=== PATIENT | female | born 1945 | race Caucasian/White ===

== ENCOUNTER → 2019-04-05 | Outpatient (REF) | LOC: M LAB LCGH 11:17 | DX: R06.02 Shortness of breath (principal) ==

== ENCOUNTER 2020-09-26 16:37 | Inpatient (IN) | payer MEDICARE ==
[~2020-09-26] VITALS: Ht 114.3 cm; Wt 65.0 kg
[2020-09-26] MEDS ORDERED: FURO40TA2 PO (16:59)
[2020-09-26] MEDS ORDERED: PANT40TA29 PO (16:59)
[2020-09-26] MEDS ORDERED: DULO1CAP6 PO (16:59)
[2020-09-26] MEDS ORDERED: GABA-843 PO (16:59)
[2020-09-26] MEDS ORDERED: MONT5TAB2 PO (16:59)
[2020-09-26] MEDS ORDERED: MELO7.5T35 PO (16:59)
[2020-09-26] MEDS ORDERED: LEVO100T5 PO (16:59)
[2020-09-26] MEDS ORDERED: LIDO2SOL9 SSP (16:59)
[2020-09-26] MEDS ORDERED: DICL1GEL3 TOP (16:59)
[2020-09-26] MEDS ORDERED: MORP30TASA PO (16:59)
[2020-09-26 17:45] LABS: BASO % 0.1 % (0.0-1.0); HEMATOCRIT 27.5 % (36.0-47.0); HEMOGLOBIN 7.7 g/dl (12.0-15.5); LYMPH # 1.5 10^3/uL (1.5-5.0); LYMPH % 14.4 % (24.0-44.0); MEAN CORPUSCULAR HEMOGLOBIN 21.4 pg (27.0-33.0); MEAN CORPUSCULAR VOLUME 76.4 fl (80.0-96.0); MONO # 0.9 10^3/uL (0.0-0.8); MONO % 8.4 % (0.0-5.0); NEUTROPHILS # 7.8 10^3/uL (1.5-8.5); NEUTROPHILS % 76.3 % (36.0-66.0); PLATELET COUNT, AUTOMATED 516 10^3/uL (150-450); WHITE BLOOD COUNT 10.2 10^3/uL (4.0-10.0)
[2020-09-26 17:55] LABS: INR 1.05; PROTHROMBIN TIME 13.9 SECONDS (12.5-14.3)
[2020-09-26 18:02] LABS: ALBUMIN 2.4 GM/DL (3.2-5.2); BILIRUBIN,TOTAL 0.2 MG/DL (0.2-1.0); C REACTIVE PROTEIN QUANTITATIV 12.9 MG/DL (0.00-0.30); CALCIUM LEVEL 8.7 MG/DL (8.8-10.2); CREATININE FOR GFR 1.85 MG/DL (0.55-1.30); GLOMERULAR FILTRATION RATE 28.3 (>39); POTASSIUM SERUM 4.5 MEQ/L (3.5-5.1); TOTAL PROTEIN 7.7 GM/DL (6.4-8.2)
[2020-09-26] MEDS ORDERED: ACET500T15 PO (18:23)
[2020-09-26 18:36] LABS: ERYTHROCYTE SEDIMENTATION RATE 127 mm/hr (0-30)
--- NOTE | 2020-09-26 19:00 | HPEPDOC ---
[facility] Medical History & Physical Date of Admission Sep 26, 2020 Date of Service: Sep 26, 2020 Primary Care Physician: Spencer Castañeda MD Attending Physician: TESHA MCGUIRE MD History and Physical CHIEF COMPLAINT: left hip infection HISTORY OF PRESENT ILLNESS: Danielle Toth is a 75 female who presents today after being seen in the outpatient setting by Dr. Valladares for wounds on her left hip and left knee. Patient states she's had these movements for about 4-5 months and has been seen Dr. Castañeda consistently. She denies being on antibiotics for these in the past. She states she has had intermittent subjective fevers and chills over this time span. She has not taken her temperature home. She has had bilateral hip surgeries in the past but denies ever having surgery for soft tissue infection previously. PAST MEDICAL HISTORY: 1. Congenital abnormalities 2. Hypertension 3. Hypothyroidism 4. Chronic pain 5. Obesity PAST SURGICAL HISTORY: 1. Bilateral hip surgeries SOCIAL HISTORY: Lives in [facility] home next to brother and sister in law Never smoker. No alcohol use. No illicit/IV drug use FAMILY HISTORY: Father and brother had myasthenia gravis. Sister had breast cancer. Grandfather had colon cancer. Reports general family history of HTN and DM. ALLERGIES: Please see below. REVIEW OF SYSTEMS: CONSTITUTIONAL: Endorses subjective fevers. Denies chills, night sweats, fatigue, unexpected change in weight. HEENT: Denies change in vision, change in hearing. CARDIOVASCULAR: Endorses some exertional shortness of breath. Denies chest pain, palpitations, lightheadedness. RESPIRATORY: Denies cough, wheezing. GASTROINTESTINAL: Denies nausea, vomiting, abdominal pain, diarrhea, constipation, blood in stool. GENITOURINARY: Denies dysuria, urinary frequency, urinary urgency. SKIN: Denies rash, lesions. MUSCULOSKELETAL: Reports bilateral shoulder and hip pain. NEUROLOGICAL: Denies headache, dizziness, weakness. PSYCHIATRIC: Denies change in mood. HOME MEDICATIONS: Please see below. PHYSICAL EXAMINATION: VITAL SIGNS: See below GENERAL: Alert, comfortable, in no acute distress HEENT: Normocephalic, atraumatic, PERRLA, EOMI, moist mucous membranes NECK: Supple, trachea midline, no JVD noted CARDIOVASCULAR: Regular rate and rhythm, normal S1 and S2. No murmurs, rubs, or gallops RESPIRATORY: Clear to auscultation bilaterally with equal air entry bilaterally. No wheezing, rhonchi, or rales. ABDOMEN: Soft, nontender, nondistended, bowel sounds present, epigastric hernia noted which is easily reducible EXTREMITIES: Bilateral legs are short compared to her body size. Pulses 2+/4 in bilateral upper and lower extremities. 1+ pitting edema in the right leg and 2+ pitting edema in the left leg. Venous stasis skin changes over the left. Three open lesions with packing present on the anterior knee, lateral knee, and lateral him of the left leg. No surrounding erythema, induration, or drainage. SKIN: Multiple seborrheic keratoses of various size on her back. NEUROLOGIC: Alert and oriented x3 to person, place and time. No focal deficits appreciated. Moves all four extremities spontaneously. PSYCHIATRIC: Mood and affect appropriate LABORATORY DATA: See below. IMAGING: None MICROBIOLOGY: Please see below. ASSESSMENT: 75-year-old female with recurrent left hip infection presents to the hospital as directed by Dr. Valladares for surgical intervention, admitted by hospitalist team for perioperative management. PLAN: 1. Left hip infection. - Elevated WBC and CRP - Plan for surgery with Dr. Valladares in the morning 2. Medical clearance for surgery - EKG pending. CXR pending. - Admits to baseline exertional dyspnea, 3. Acute kidney injury vs new diagnosis CKD - ordered renal ultrasound, urine electrolytes - trend BMP daily - no known history of kidney disease 4. Anemia, chronic vs acute - ordered iron studies DVT Prophylaxis: Teds and SCDs perioperatively DISPOSITION: admitted inpatient to med/surg, expect greater than two midnights stay, pending surgical intervention Attending attestation: Patient seen and examined independently. Agree with resident's note. Vital Signs Vital Signs Date Time Temp Pulse Resp B/P (MAP) Pulse Ox O2 Delivery O2 Flow Rate FiO2 09/26/20 17:55 09/26/20 16:38 97.8 78 18 98 Room Air Laboratory Data Labs 24H Laboratory Tests 2 09/26/20 17:29: Immature Granulocyte % (Auto) 0.8, Neutrophils (%) (Auto) 76.3H, Lymphocytes (%) (Auto) 14.4L, Monocytes (%) (Auto) 8.4H, Eosinophils (%) (Auto) 0.0, Basophils (%) (Auto) 0.1, Neutrophils # (Auto) 7.8, Lymphocytes # (Auto) 1.5, Monocytes # (Auto) 0.9H, Eosinophils # (Auto) 0.0, Basophils # (Auto) 0.0, Nucleated Red Blood Cells % (auto) 0.0, Prothrombin Time 13.9, Prothromb Time International Ratio 1.05, Anion Gap 4L, Glomerular Filtration Rate 28.3L, Calcium Level 8.7L, Total Bilirubin 0.2, Aspartate Amino Transf (AST/SGOT) 13, Alanine Ami notransferase (ALT/SGPT) 9L, Alkaline Phosphatase 129H, C-Reactive Protein, Quantitative 12.90H, Total Protein 7.7, Albumin 2.4L, Albumin/Globulin Ratio 0.5L CBC/BMP Laboratory Tests 09/26/20 17:29 Microbiology Microbiology 09/26/20 Blood Culture, Received Pending 09/26/20 Blood Culture, Received Pending Home Medications Scheduled Acetaminophen (Acetaminophen) 500 Mg Tablet, 500 MG PO BID Diclofenac Sodium (Diclofenac Sodium) 1% 100GM Gel..gram., 2 GRAMS TOP BID APPLIES TO SHOULDERS/LOWER BACK Duloxetine Hcl (Duloxetine HCl) 60 Mg Capsule.dr, 60 MG PO DAILY Furosemide (Furosemide) 40 Mg Tablet, 40 MG PO DAILY Gabapentin (Gabapentin) 300 Mg Capsule, 300 MG PO TID Levothyroxine Sodium (Levothyroxine Sodium) 100 Mcg Tablet, 100 MCG PO DAILY Lidocaine HCl (Lidocaine HCl Viscous) 100 Ml Solution, 15 ML SSP TID Meloxicam (Meloxicam) 7.5 Mg Tablet, 7.5 MG PO BID Montelukast Sodium (Montelukast Sodium) 10 Mg Tablet, 10 MG PO QHS Morphine Sulfate (Morphine Sulfate ER) 30 Mg Tablet.er, 30 MG PO BID Pantoprazole Sodium (Pantoprazole Sodium) 40 Mg Tablet.dr, 40 MG PO DAILY Allergies Coded Allergies: pregabalin (Verified Adverse Reaction, Unknown, "made me feel spaced out", 09/26/20) FRANCISCO GRANADO D.O. Sep 26, 2020 19:00 TESHA MCGUIRE MD Sep 27, 2020 07:12
[2020-09-26 19:26] LABS: PERCENT SATURATION 5.7 % (13.2-45.0)
--- NOTE | 2020-09-26 20:39 | REPVR ---
PROCEDURE INFORMATION: Exam: US Retroperitoneal Limited, Kidneys Exam date and time: 09/26/2020 7:56 PM Age: 75 years old Clinical indication: Abnormal findings; Abnormal lab test; Abnormal kidney function lab tests; Additional info: Elevated creatinine TECHNIQUE: Imaging protocol: Real-time ultrasound of the retroperitoneum with image documentation. Examination was focused on the kidneys. COMPARISON: No relevant prior studies available. FINDINGS: Exam is limited due to patient body habitus and resultant poor resolution. Left kidney is not visualized. Right kidney measures 8.5 x 5.3 x 4 cm with increased echotexture and cortical thinning. No high-grade collecting system dilatation. No perinephric fluid. Bladder is unremarkable IMPRESSION: No obstructive change involving the right kidney, with mild cortical thinning present. Nonvisualized left kidney. Electronically signed by: Vic Blanca On 09/26/2020 20:39:03 PM
[2020-09-26] MEDS ORDERED: MELOXICAM (MOBIC) 7.5 MG TAB PO SCH (21:00)
--- NOTE | 2020-09-26 21:12 | REPVR ---
PROCEDURE INFORMATION: Exam: XR Chest, 1 View Exam date and time: 09/26/2020 5:56 PM Age: 75 years old Clinical indication: Other: Preop TECHNIQUE: Imaging protocol: XR of the chest Views: 1 view. COMPARISON: No relevant prior studies available. FINDINGS: Lungs: Degree of lung inflation is normal. No evidence of pulmonary edema. No focal consolidation or parenchymal lung mass. Pleural space: No pleural effusion or pneumothorax. Heart/Mediastinum: Cardiac silhouette appears normal. No adenopathy or hilar mass. Bones/joints: Chronic arthropathy changes of the glenohumeral joints and degenerative changes are seen in the cervical and thoracic spine. IMPRESSION: No acute or focal cardiopulmonary process. Electronically signed by: Vic Blanca On 09/26/2020 21:12:40 PM
--- NOTE | 2020-09-26 21:12 | REPVR ---
PROCEDURE INFORMATION: Exam: CT Left Lower Extremity Without Contrast, Hip Exam date and time: 09/26/2020 7:47 PM Age: 75 years old Clinical indication: Pain; Hip; Left; Additional info: Danielle TECHNIQUE: Imaging protocol: CT of the Left lower extremity without contrast was performed. Exam focused on the hip. Radiation optimization: All CT scans at this facility use at least one of these dose optimization techniques: automated exposure control; mA and/or kV adjustment per patient size (includes targeted exams where dose is matched to clinical indication); or iterative reconstruction. COMPARISON: No relevant prior studies available. FINDINGS: Severely limited by artifact from orthopedic hardware. The lateral thigh is excluded from the field of view as is the knee joint. Hip arthroplasty hardware with revision hardware is present with very limited evaluation of the osseous structures secondary to the hardware artifact. There is no dislocation between the femoral and acetabular components of the hip arthroplasty although there is lucency at the interface between the acetabulum and the acetabular component, unknown chronicity. Chronic deformities of the sacrum and iliac bone are present and old obturator ring fractures are present. I do not see evidence of an acute fracture and the symphysis and right obturator ring appear intact. No obvious soft tissue hematoma. Distal thigh is not imaged IMPRESSION: Extremely limited study demonstrating no obvious periprosthetic fracture involving the proximal femur and acetabular prostheses. Distal femur and thigh are not imaged. 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
[2020-09-26] MEDS: LIDOCAINE VISCOUS 2% SOLN 15ML UDC SSP SCH (22:53)
[2020-09-26] MEDS: MONTELUKAST 10 MG TAB PO SCH (22:53)
[2020-09-26] MEDS: ACETAMINOPHEN 500 MG TAB PO SCH (22:53)
[2020-09-26] MEDS: GABAPENTIN 300 MG CAP PO SCH (22:53)
[2020-09-26] MEDS: MORPHINE 30 MG SA TAB PO SCH (22:54)
[2020-09-27] VITALS (12 sets, daily range): BP systolic 119–179; BP diastolic 64–93
[2020-09-27] MEDS: LEVOTHYROXINE 100MCG TABLET (0.1MG) PO SCH (05:38)
[2020-09-27 06:57] LABS: HEMOGLOBIN 7.5 g/dl (12.0-15.5); MEAN CORPUSCULAR HGB CONC 28.8 g/dl (32.0-36.5); MEAN CORPUSCULAR VOLUME 76.2 fl (80.0-96.0); PLATELET COUNT, AUTOMATED 471 10^3/uL (150-450); RED BLOOD COUNT 3.41 10^6/uL (4.00-5.40); WHITE BLOOD COUNT 6.5 10^3/uL (4.0-10.0)
[2020-09-27 07:31] LABS: CALCIUM LEVEL 8.9 MG/DL (8.8-10.2); CREATININE FOR GFR 1.75 MG/DL (0.55-1.30); GLOMERULAR FILTRATION RATE 30.2 (>39); MAGNESIUM LEVEL 2.4 MG/DL (1.8-2.4)
[2020-09-27 07:59] LABS: CREATININE,RANDOM URINE 51.4 MG/DL
[2020-09-27] MEDS ORDERED: dexameTHASONE 4 MG/ML 1ML VIAL (J1100 PER 1MG) As Ordered ONE (09:05)
[2020-09-27] MEDS ORDERED: LIDOCAINE 2% 100MG/5ML SDV (FOR ANES.) As Ordered ONE (09:05)
[2020-09-27] MEDS ORDERED: propofoL 200 MG/20 ML VIAL As Ordered ONE (09:05)
[2020-09-27] MEDS ORDERED: MIDAZOLAM INJ 2MG/2ML VIAL (J2250 PER 1MG) As Ordered ONE (09:05)
[2020-09-27] MEDS ORDERED: ONDANSETRON 4MG/2ML VIAL As Ordered ONE (09:05)
[2020-09-27] MEDS ORDERED: fentaNYL 100 MCG/2 ML INJECTION (J3010) As Ordered ONE (09:05)
[2020-09-27] MEDS: DULoxetine 30 MG CAP (CYMBALTA) PO SCH (09:24)
[2020-09-27] MEDS: MORPHINE 30 MG SA TAB PO SCH ×2 (09:25→21:20)
[2020-09-27] MEDS: GABAPENTIN 300 MG CAP PO SCH ×3 (09:25→21:19)
[2020-09-27] MEDS: PANTOPRAZOLE 40MG TAB (PROTONIX) PO SCH (09:26)
[2020-09-27] MEDS: LIDOCAINE VISCOUS 2% SOLN 15ML UDC SSP SCH ×3 (09:26→21:18)
[2020-09-27] MEDS: ACETAMINOPHEN 500 MG TAB PO SCH ×2 (09:26→21:19)
--- NOTE | 2020-09-27 11:12 | CR.PDOC ---
Plastic Surgery Consultation Date of Consultation 09/27/20 History and Physical CONSULT REPORT FOR: Medical team REASON FOR CONSULTATION: Left hip infected wound and left knee chronic wounds HISTORY OF PRESENT ILLNESS: 75 y/o female Left knee chronic medial and lateral open wounds, developed a new open wound left hip 2 days prior to admission. Patient seen by wound care and me yesterday. She had an abscess drained from the left hip. Patient denies CP, SOB, fever, chills. She has local pain, induration left hip. She needs a formal surgical debridement of all the wounds of the left leg, since the depth is not unknown. She was sent to ER from my office to be admitted and prepared for surgery. IV antibiotics. PAST MEDICAL HISTORY: 1. both legs deformities. Arthritis, anemia. PAST SURGICAL HISTORY: INCLUDES: 1. both hips surgery. PREVIOUS ANESTHESIA REACTIONS: denies ALLERGIES: Please see below. FAMILY HISTORY: none contributory. HOME MEDICATIONS: Please see below. REVIEW OF SYSTEMS: GENERAL: Denies chills, reports weight gain,. HEENT: Denies blurred vision and double vision. Denies ear symptoms. Denies hoarseness. NECK: Denies any neck pain]. CARDIOVASCULAR: Denies chest pain and palpitations. MUSCULOSKELETAL: wheelchair bound. SKIN: Denies rash. NEUROLOGIC: Denies headache, stroke and transient ischemic attack. PSYCHIATRIC: Denies anxiety and depression. ENDOCRINE: Denies thyroid disease. HEMATOLOGY/ONCOLOGY: Denies bleeding or clotting disorder. HEART: Denies any chest pains, palpitations, paroxysmal dyspnea, orthopnea. PULMONARY: Denies chronic cough, dyspnea and wheezing. GASTROINTESTINAL: Denies rectal bleeding, family history of colon cancer, constipation, diarrhea, dysphagia, heartburn and jaundice. GENITOURINARY: Denies dysuria, frequency, hematuria and nocturia. ENDOCRINE: Denies polydipsia, polyphagia, polyuria, heat or cold intolerance. INFECTIOUS: Denies any recent upper respiratory tract infection, UTI, need for use of antibiotics. Left hip wound infection NUTRITION: Reports good appetite. PHYSICAL EXAMINATION: VITALS SIGNS: Please see below. GENERAL APPEARANCE:Patient seen, laying in bed, awake, alert, and oriented. Comfortable, in no acute distress. SKIN: Warm and moist. Left hip open wound 1x1 cm , left knee lateral and left medial wounds 1x1cm unmeasurab NECK: Supple, no thyromegaly. No obvious jugular venous distention. LUNGS: Clear to auscultation bilaterally. No wheezing appreciated. HEART: No chest wall abnormalities. Regular rate and rhythm with no murmurs appreciated. ABDOMEN: Abdomen is soft, non-tender, non-distended. EXTREMITIES: Extremities have no deformities. No edema identified. No calf tenderness. LABORATORY DATA: Please see below. IMAGING STUDIES: Visualized hip prosthesis left hip. IMPRESSION: Left hip and knee wounds. PLANS: Admit to medical service. IV antibiotics Wash out all wounds today. Transfuse blood, would like to have Hb of 9 for proper healing. Findings discussed with patient. Vital Signs Vital Signs Date Time Temp Pulse Resp B/P (MAP) Pulse Ox O2 Delivery O2 Flow Rate FiO2 09/27/20 10:15 98.7 83 16 144/80 96 Room Air I&Os I&O- Last 24 Hours up to 6 AM 09/27/20 06:00 Intake Total 0 ml Output Total 600 ml Balance -600 ml Laboratory Data Labs 24H Laboratory Tests 2 09/26/20 17:29: Immature Granulocyte % (Auto) 0.8, Neutrophils (%) (Auto) 76.3H, Lymphocytes (%) (Auto) 14.4L, Monocytes (%) (Auto) 8.4H, Eosinophils (%) (Auto) 0.0, Basophils (%) (Auto) 0.1, Neutrophils # (Auto) 7.8, Lymphocytes # (Auto) 1.5, Monocytes # (Auto) 0.9H, Eosinophils # (Auto) 0.0, Basophils # (Auto) 0.0, Nucleated Red Blood Cells % (auto) 0.0, Erythrocyte Sedimentation Rate 127H, Prothrombin Time 13.9, Prothromb Time International Ratio 1.05, Anion Gap 4L, Glomerular Fi ltration Rate 28.3L, Calcium Level 8.7L, Iron Level 17L, Total Iron Binding Capacity 297, Transferrin % Saturation 5.7L, Ferritin 43, Total Bilirubin 0.2, Aspartate Amino Transf (AST/SGOT) 13, Alanine Aminotransferase (ALT/SGPT) 9L, Alkaline Phosphatase 129H, C-Reactive Protein, Quantitative 12.90H, Total Protein 7.7, Albumin 2.4L, Albumin/Globulin Ratio 0.5L 09/26/20 18:27: Coronavirus (COVID-19)(PCR) NEGATIVE, Influenza Type A (RT-PCR) NEGATIVE, Influenza Type B (RT-PCR) NEGATIVE, Respiratory Syncytial Virus (PCR) NEGATIVE 09/26/20 20:05: 09/27/20 06:32: Nucleated Red Blood Cells % (auto) 0.0, Anion Gap 5L, Glomerular Filtration Rate 30.2L, Calcium Level 8.9, Magnesium Level 2.4 09/27/20 07:20: Urine Random Creatinine 51.4, Urine Random Sodium 48 CBC/BMP Laboratory Tests 09/26/20 17:29 09/27/20 06:32 Microbiology Microbiology 09/26/20 Blood Culture, Received Pending 09/26/20 Blood Culture, Received Pending Home Medications Scheduled Acetaminophen (Acetaminophen) 500 Mg Tablet, 500 MG PO BID, (Reported) Diclofenac Sodium (Diclofenac Sodium) 1% 100GM Gel..gram., 2 GRAMS TOP BID, (Reported) APPLIES TO SHOULDERS/LOWER BACK Duloxetine Hcl (Duloxetine HCl) 60 Mg Capsule.dr, 60 MG PO DAILY, (Reported) Furosemide (Furosemide) 40 Mg Tablet, 40 MG PO DAILY, (Reported) Gabapentin (Gabapentin) 300 Mg Capsule, 300 MG PO TID, (Reported) Levothyroxine Sodium (Levothyroxine Sodium) 100 Mcg Tablet, 100 MCG PO DAILY, (Reported) Lidocaine HCl (Lidocaine HCl Viscous) 100 Ml Solution, 15 ML SSP TID, (Reported) Meloxicam (Meloxicam) 7.5 Mg Tablet, 7.5 MG PO BID, (Reported) Montelukast Sodium (Montelukast Sodium) 10 Mg Tablet, 10 MG PO QHS, (Reported) Morphine Sulfate (Morphine Sulfate ER) 30 Mg Tablet.er, 30 MG PO BID, (Reported) Pantoprazole Sodium (Pantoprazole Sodium) 40 Mg Tablet.dr, 40 MG PO DAILY, (Reported) Allergies Coded Allergies: pregabalin (Verified Adverse Reaction, Unknown, "made me feel spaced out", 09/26/20) NAVYA RIVERA DO Sep 27, 2020 11:12
[2020-09-27] MEDS ORDERED: BACITRACIN PWD 50,000 UNITS VIAL As Ordered ONE (11:23)
[2020-09-27] MEDS ORDERED: CLINDAMYCIN 600 MG/50 ML PREMIX BAG As Ordered ONE (11:50)
[2020-09-27] MEDS ORDERED: ePHEDrine SULFATE 25 MG/5 ML(5MG/ML) SYRINGE As Ordered ONE (11:51)
--- NOTE | 2020-09-27 11:51 | IPNPDOC ---
Text Note Date of Service The patient was seen on 09/27/20. NOTE SUBJECTIVE: Patient was seen and examined at bedside. She is feeling well without any complaints. She understands she will be going to surgery with Dr. Valladares later today. OBJECTIVE: VITAL SIGNS: See below GENERAL: Alert, comfortable, in no acute distress HEENT: Normocephalic, atraumatic, PERRLA, EOMI, moist mucous membranes NECK: Supple, trachea midline, no JVD noted CARDIOVASCULAR: Regular rate and rhythm, normal S1 and S2. No murmurs, rubs, or gallops RESPIRATORY: Clear to auscultation bilaterally with equal air entry bilaterally. No wheezing, rhonchi, or rales. ABDOMEN: Soft, nontender, nondistended, bowel sounds present, epigastric hernia noted which is easily reducible EXTREMITIES: Bilateral legs are short compared to her body size. Pulses 2+/4 in bilateral upper and lower extremities. 1+ pitting edema in the right leg and 2+ pitting edema in the left leg. Venous stasis skin changes over the left. Three open lesions with packing present on the anterior knee, lateral knee, and lateral him of the left leg. No surrounding erythema, induration, or drainage. SKIN: Multiple seborrheic keratoses of various size on her back. NEUROLOGIC: Alert and oriented x3 to person, place and time. No focal deficits appreciated. Moves all four extremities spontaneously. PSYCHIATRIC: Mood and affect appropriate ASSESSMENT/PLAN: 75-year-old female with recurrent left hip infection presents to the hospital as directed by Dr. Valladares for surgical intervention, admitted by hospitalist team for perioperative management. PLAN: 1. Left hip infection. - Elevated WBC and CRP - Follows with Dr. Castañeda for wound care. - Plan for surgery with Dr. Valladares today for washout 2. Medical clearance for surgery - EKG and CXR reviewed - Admits to baseline exertional dyspnea, uses wheelchair at baseline due to nely enital leg abnormality - She is intermediate risk for this low risk procedure, suggest proceeding with surgery 3. Acute kidney injury vs new diagnosis CKD - renal ultrasound shows normal right kidney, did not visualize left kidney - urine electrolytes suggest intrarenal etiology based on FENa. ordered UA and urine protein. - today pt admits to being told in the past she had some kidney dysfunction. unknown baseline Cr - trend BMP daily 4. Anemia, chronic vs acute - consented for 1 unit PRBCs today prior to surgery per Dr. Valladares - iron studies suggest anemia of chronic disease DVT Prophylaxis: Teds and SCDs perioperatively DISPOSITION: pending surgical intervention VS,Fishbone, I+O VS, Fishbone, I+O Laboratory Tests 09/26/20 17:29 09/27/20 06:32 Vital Signs Date Time Temp Pulse Resp B/P (MAP) Pulse Ox O2 Delivery O2 Flow Rate FiO2 09/27/20 10:15 98.7 83 16 144/80 96 Room Air I&O- Last 24 Hours up to 6 AM 09/27/20 05:59 Intake Total 0 ml Output Total 400 ml Balance -400 ml FRANCISCO GRANADO D.O. Sep 27, 2020 11:51
[2020-09-27] MEDS ORDERED: PHENYLephrine HCL 500 MCG/5 ML (100MCG/ML) SYRINGE (J2370) As Ordered ONE (12:06)
[2020-09-27] MEDS ORDERED: ACETAMINOPHEN 1000MG 100ML IV BTL (OFIRMEV) (J0131 PER 10MG) As Ordered ONE (12:14)
--- NOTE | 2020-09-27 13:07 | POST-OPPD ---
Postoperative Procedure Note Date Of Procedure: Sep 27, 2020 PREOPERATIVE DIAGNOSIS: Left hip infected wound, left knee wounds medial and lateral POSTOPERATIVE DIAGNOSIS: same FINDINGS: Left hip wound pre op 1x1x4.3 cm post op 1.2x1x4.3cm, Left lateral knee pre op 0.5 x 0.6 x 6 cm post op 1.5 x 1 x 6 cm, Left medial knee 0.5 x 1 x 5 cm post op 2 x 1 x 5 cm PROCEDURE: Irrigation and debridement left hip, left medial knee, left lateral knee wound. SURGEON: Dr Rivera ANESTHESIA: General SPECIMENS: Left hip, left medial knee, left lateral knee debrided tissue and cultures ESTIMATED BLOOD LOSS: 25cc REPLACED: none DRAINS: none COMPLICATIONS: none POSTOPERATIVE CONDITION: stable Dict:[id number] NAVYA RIVERA DO Sep 27, 2020 13:07
[2020-09-27] MEDS ORDERED: ONDANSETRON 4MG/2ML VIAL IV PRN (13:45)
[2020-09-27] MEDS ORDERED: oxyCODONE 5MG TAB PO PRN (13:45)
[2020-09-27] MEDS ORDERED: HYDROMORPHONE HCL 0.5 MG/ 0.5 ML SYRINGE (J1170 PER 1) IV PRN (13:45)
[2020-09-27] MEDS ORDERED: fentaNYL 100 MCG/2 ML INJECTION (J3010) IV PRN (13:45)
[2020-09-27] MEDS ORDERED: LR 1,000 ML IV SCH (13:45)
[2020-09-27 16:11] LABS: HEMATOCRIT 30.6 % (36.0-47.0); HEMOGLOBIN 8.9 g/dl (12.0-15.5)
[2020-09-27] MEDS: CLINDAMYCIN 600 MG in IV 1 EA IV SCH ×2 (16:59→21:19)
[2020-09-27] MEDS: MONTELUKAST 10 MG TAB PO SCH (21:19)
--- NOTE | 2020-09-27 22:41 | ECGEPIP ---
[facility] Test Date: 2020-09-26 Pat Name: CHRISSY GIPSON Department: Room: D9968-44 Gender: Female Component Prep Operator: riley : 1945 Requested By: TESHA Lara Order Number: [id number] Reading MD: Sonny Wan Measurements Intervals [place] Rate: 81 P: 59 RI: 174 QRS: 33 QRSD: 82 T: 32 QT: 367 QTc: 428 Interpretive Statements SINUS RHYTHM Within normal limits. No prior ECG available for comparison at the time of interpretation. Electronically Signed on 09-27-2020 22:41:21 EST by Sonny Wan
[2020-09-28] VITALS (7 sets, daily range): BP systolic 140–150; BP diastolic 64–79
[2020-09-28] MEDS: CLINDAMYCIN 600 MG in IV 1 EA IV SCH (03:58)
[2020-09-28] MEDS: LEVOTHYROXINE 100MCG TABLET (0.1MG) PO SCH (06:28)
[2020-09-28 07:01] LABS: HEMOGLOBIN 8.6 g/dl (12.0-15.5); MEAN CORPUSCULAR HEMOGLOBIN 23.1 pg (27.0-33.0); MEAN CORPUSCULAR HGB CONC 29.7 g/dl (32.0-36.5); MEAN CORPUSCULAR VOLUME 77.7 fl (80.0-96.0); PLATELET COUNT, AUTOMATED 466 10^3/uL (150-450); RED BLOOD COUNT 3.73 10^6/uL (4.00-5.40); WHITE BLOOD COUNT 5.4 10^3/uL (4.0-10.0)
[2020-09-28 07:30] LABS: CALCIUM LEVEL 8.3 MG/DL (8.8-10.2); CREATININE FOR GFR 1.64 MG/DL (0.55-1.30); GLOMERULAR FILTRATION RATE 32.5 (>39); MAGNESIUM LEVEL 2.3 MG/DL (1.8-2.4); POTASSIUM SERUM 4.4 MEQ/L (3.5-5.1)
[2020-09-28] MEDS ORDERED: FLUBLOK(EGG FREE)(QUAD)INFLUENZA VACC 0.5ML SYRINGE 18YRS & OLDER IM ONE (09:00)
[2020-09-28] MEDS: LIDOCAINE VISCOUS 2% SOLN 15ML UDC SSP SCH (10:03)
[2020-09-28] MEDS: GABAPENTIN 300 MG CAP PO SCH ×2 (10:05→15:08)
[2020-09-28] MEDS: ACETAMINOPHEN 500 MG TAB PO SCH (10:05)
[2020-09-28] MEDS: PANTOPRAZOLE 40MG TAB (PROTONIX) PO SCH (10:05)
[2020-09-28] MEDS: MORPHINE 30 MG SA TAB PO SCH (10:06)
[2020-09-28] MEDS: DULoxetine 30 MG CAP (CYMBALTA) PO SCH (10:06)
[2020-09-28] MEDS ORDERED: CLIN150C14 PO (12:42)
--- NOTE | 2020-09-28 15:28 | DS.PDOC ---
Discharge Summary General Date of Admission Sep 26, 2020 at 18:18 Date of Discharge 09/28/2020 Primary Care Physician: Spencer Castañeda MD Attending Physician: TESHA MCGUIRE MD Discharge Summary PROCEDURES PERFORMED DURING STAY: Irrigation and debridement left hip, left medial knee, left lateral knee wounds. ADMITTING DIAGNOSES: 1. Left hip, left medial knee, left lateral knee wounds 2. Acute kidney injury vs CKD 3. Anemia, acute vs chronic 4. Bilateral congenital leg abnormalities 5. Hypertension 6. Hypothyroidism 7. Chronic pain 8. Obesity DISCHARGE DIAGNOSES: 1. Left hip, left medial knee, left lateral knee wounds s/p I&D with Dr. Valladares 2. Acute kidney injury vs OLIVERIO on CKD, improved 3. Acute on chronic anemia 4. Bilateral congenital leg abnormalities 5. Hypertension 6. Hypothyroidism 7. Chronic pain 8. Obesity COMPLICATIONS/CHIEF COMPLAINT: Skin Issue. HISTORY OF PRESENT ILLNESS: 75 year old female who presents today after being seen in the outpatient setting by Dr. Valladares for wounds on her left hip and left knee. Patient states she's had these wounds for about 4-5 months and has been seen by Dr. Castañeda for that time. She denies being on antibiotics for these in the past. She states she has had intermittent subjective fevers and chills over this time span. She has not taken her temperature home. She has had bilateral hip surgeries in the past but denies ever having surgery for soft tissue infection previously. She was seen by Dr. Valladares for a consultation who recommend she report to the ED for urgent surgical intervention of her wounds. HOSPITAL COURSE: The patient was admitted to the hospital by the hospitalist team and evaluated for surgical risk. An EKG and CXR were complete and reviewed. We also discussed her function status at home which has been limited due to her congenital abnormalities. She was determined to be of intermediate risk for the low risk procedure of incision and drainage of three wounds on her left lower extremity. She was found to be anemic with H/H of 7.7/27.5 and prior to surgery she was transfused with one unit of blood. She was also found to have elevated creatinine at 1.85. She did admit to a history of chronic anemia and some kidney dysfunction, but we did not have any recent lab work to compare. She was taken to the OR by Dr. Valladares on 09/27/2020 for I&D of her three wounds. Post-op eratively her Hg had improved to 8.9/30.6. Her creatinine also trended down to 1.64 during her admission. She was evaluated by PT and OT prior to discharge and found to be at her baseline functioning. She was discharged home on oral antibiotics and asked to follow up with both her PCP and Dr. Castañeda after discharge. DISCHARGE MEDICATIONS: Please see below. ALLERGIES: Please see below. PHYSICAL EXAMINATION ON DISCHARGE: VITAL SIGNS: Please see below. GENERAL: Alert, comfortable, in no acute distress HEENT: Normocephalic, atraumatic, PERRLA, EOMI, moist mucous membranes NECK: Supple, trachea midline, no JVD noted CARDIOVASCULAR: Regular rate and rhythm, normal S1 and S2. No murmurs, rubs, or gallops RESPIRATORY: Clear to auscultation bilaterally with equal air entry bilaterally. No wheezing, rhonchi, or rales. ABDOMEN: Soft, nontender, nondistended, bowel sounds present, epigastric hernia noted which is easily reducible EXTREMITIES: Bilateral legs are short compared to her body size. Pulses 2+/4 in bilateral upper and lower extremities. 1+ pitting edema in the right leg and 2+ pitting edema in the left leg. Venous stasis skin changes over the left. Two wounds on the left knee with wound vac in place over each. one wound on the left hip which is covered in a clean dressing. SKIN: Multiple seborrheic keratoses of various size on her back. NEUROLOGIC: Alert and oriented x3 to person, place and time. No focal deficits appreciated. Moves all four extremities spontaneously. PSYCHIATRIC: Mood and affect appropriate LABORATORY DATA: Please see below. IMAGING: - CXR No acute or focal cardiopulmonary process. - CT Left hip Extremely limited study demonstrating no obvious periprosthetic fracture involving the proximal femur and acetabular prostheses. Distal femur and thigh are not imaged. 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 Nonvisualized left kidney. PROGNOSIS: Fair ACTIVITY: As tolerated. DIET: Regular diet DISCHARGE PLAN/DISPOSITION: Home on oral antibiotics to follow up outpatient with Dr. Castañeda. DISCHARGE INSTRUCTIONS: 1. Follow-up with your PCP in 7-10 days 2. Follow up with Dr. Castañeda within 1 week 3. Please take antibiotics as prescribed, which may be adjusted based on culture results. 4. Please take all other medications as prescribed. We have stopped your home Meloxicam due to your kidney function. 5. If your symptoms return or your condition worsens, please call your PCP or return to the ED for further evaluation. ITEMS TO FOLLOWUP ON ON OUTPATIENT: 1. Anemia and kidney function with PCP 2. Wound culture results and further management with Dr. Castañeda DISCHARGE CONDITION: Stable. TIME SPENT ON DISCHARGE: Greater than 35 minutes. Attending note: Patient seen and examined independently. Agree with resident's note. Vital Signs/I&Os Vital Signs Date Time Temp Pulse Resp B/P (MAP) Pulse Ox O2 Delivery O2 Flow Rate FiO2 09/28/20 10:06 18 09/28/20 05:38 98.6 82 140/64 (89) 97 Room Air 09/27/20 13:40 2 I&O- Last 24 Hours up to 6 AM 09/28/20 06:00 Intake Total 1745 ml Output Total 275 ml Balance 1470 ml Laboratory Data Labs 24H Laboratory Tests 2 09/27/20 13:29: Bedside Glucose (Misc Panel) 81L 09/27/20 13:59: Bedside Glucose (Misc Panel) 95 09/27/20 15:53: Bedside Glucose (Misc Panel) 139H 09/28/20 06:27: Nucleated Red Blood Cells % (auto) 0.0, Anion Gap 8, Glomerular Filtration Rate 32.5L, Calcium Level 8.3L, Magnesium Level 2.3 CBC/BMP Laboratory Tests 09/27/20 15:49 09/28/20 06:27 FSBS Laboratory Tests Test 09/27/20 13:29 09/27/20 13:59 09/27/20 15:53 Range/Units Bedside Glucose (Misc Panel) 81 95 139 83-110 MG/DL Microbiology Microbiology 09/27/20 Gram Stain - Final, Resulted 09/27/20 Wound Culture, Resulted Pending 09/27/20 Gram Stain - Final, Resulted 09/27/20 Wound Culture, Resulted Pending 09/27/20 Gram Stain - Final, Resulted 09/27/20 Wound Culture, Resulted Pending 09/26/20 Blood Culture - Preliminary, Resulted No growth after 24 hours . All specim... 09/26/20 Blood Culture - Preliminary, Resulted No growth after 24 hours . All specim... Discharge Medications Scheduled Acetaminophen (Acetaminophen) 500 Mg Tablet, 500 MG PO BID, (Reported) Clindamycin Hcl (Clindamycin HCl) 150 Mg Capsule, 450 MG PO TID Please take 3 capsules at a time and do so three times a day. Diclofenac Sodium (Diclofenac Sodium) 1% 100GM Gel..gram., 2 GRAMS TOP BID, (Reported) APPLIES TO SHOULDERS/LOWER BACK Duloxetine Hcl (Duloxetine HCl) 60 Mg Capsule.dr, 60 MG PO DAILY, (Reported) Furosemide (Furosemide) 40 Mg Tablet, 40 MG PO DAILY, (Reported) Gabapentin (Gabapentin) 300 Mg Capsule, 300 MG PO TID, (Reported) Levothyroxine Sodium (Levothyroxine Sodium) 100 Mcg Tablet, 100 MCG PO DAILY, (Reported) Lidocaine HCl (Lidocaine HCl Viscous) 100 Ml Solution, 15 ML SSP TID, (Reported) Montelukast Sodium (Montelukast Sodium) 10 Mg Tablet, 10 MG PO QHS, (Reported) Morphine Sulfate (Morphine Sulfate ER) 30 Mg Tablet.er, 30 MG PO BID, (Reported) Pantoprazole Sodium (Pantoprazole Sodium) 40 Mg Tablet.dr, 40 MG PO DAILY, (Reported) Allergies Coded Allergies: pregabalin (Verified Adverse Reaction, Unknown, "made me feel spaced out", 09/26/20) FRANCISCO GRANADO D.O. Sep 28, 2020 12:37 TESHA MCGUIRE MD Sep 29, 2020 18:07
[2020-09-28] MEDS ORDERED: CLINDAMYCIN 150MG CAPSULE PO SCH (16:00)
--- NOTE | 2020-10-02 09:36 | RO ---
OPERATIVE NOTE DATE OF OPERATION: 09/27/2020 PREOPERATIVE DIAGNOSES: 1. Left hip infected wound. 2. Left knee wound medial and lateral. POSTOPERATIVE DIAGNOSES: 1. Left hip infected wound. 2. Left knee wound medial and lateral. FINDINGS: 1. Left hip wound preop measurements 1 x 1 x 4.3 cm, postop measurements 1.2 x 1 x 4.3 cm. 2. Left lateral knee preop measurements 0.5 x 0.6 x 6 cm depth, postop 1.5 x 1 x 6 cm depth. 3. Left medial knee 0.5 x 1 x 5 cm, postop measurements 2 x 1 x 5 cm depth. PROCEDURE: Irrigation and debridement left hip and left medial and left lateral knee wound. ATTENDING SURGEON: Dr. Valladares. ANESTHESIA: General. SPECIMENS: Left hip, left medial knee, and left lateral knee debrided tissues and cultures. BLOOD LOSS: 25 mL. REPLACEMENTS: None. DRAINS: None. COMPLICATION: None. DESCRIPTION OF PROCEDURE: This is a 75-year-old female who has been seen in Wound Care for chronic left lateral and medial knee wounds. She developed a new wound in her left hip which is infection, and it was drained in Wound Care. Patient's body habitus and the depth of the wound is unknown, and we will need to have her surgically to do a formal I&D and also a formal I&D of her chronic wounds on the left knee. So, patient was admitted through the hospital, and during a workup we identified anemia of chronic origin. Hemoglobin was 7.7 so transfusion was initiated before the surgery, and also she was started on antibiotics. The day of surgery she was stable prior to the operation. Informed consent was obtained. She was brought into the operating room and placed in the supine position. Preoperative antibiotics given on schedule, and general anesthesia was induced. She was prepped and draped in the usual sterile fashion. We started our procedure on the left hip. The packing was removed. All the wounds were measured with measurements as above. We started our procedure by debriding the left hip wound. There was no purulence at this point. Hemostasis obtained. The wound edges were freshened up using a 15 blade, and it was power irrigated with bacitracin irrigation solution. The same procedure was carried out on the left lateral knee. The wound was completely excised all the way down to the end of the wound and the tissue sent to pathology. There was no purulence in the knee wound. However, there was a significant amount of previous scarring so the scar was resected until healthy tissue, and hemostasis was obtained using electrocautery. On all the wounds the cultures were sent as well. Then we turned our attention to the medial knee wound which also scar tissue was excised. Also, the edge of the skin was excised, and hemostasis obtained after the excision, and both knee wounds were irrigated with the power line installer repairer with bacitracin irrigation solution. At this point, we used powdered EpiFix. It was diluted with 5 mL of normal saline and injected in subcu on both lateral and medial knee wounds. Also we used the white foam to pack the wound and applied the wound VAC on the knee wounds. The hip wound was packed with Iodoform dressing and covered with sterile dressing. Patient was extubated in the operating room without any difficulty and transferred to recovery in stable condition.
== END 2020-09-28 18:30 | disposition home health service (06) | DRG 571 ==
LOC: M ED 16:37 → M ED INP 18:18 → ENRESERV 21:43 → M MS5PR 09-27 00:36
PROVIDERS: ADMIT Internal Medicine; ATTEND Internal Medicine
PROC: 0JBP0ZZ Excision of Left Lower Leg Subcutaneous Tissue and Fascia, Open Approach (ICD-10-PCS; 2020-09-27)
PROC: 30233N1 Transfusion of Nonautologous Red Blood Cells into Peripheral Vein, Percutaneous Approach (ICD-10-PCS; 2020-09-27)
PROC: 0JBC0ZZ Excision of Pelvic Region Subcutaneous Tissue and Fascia, Open Approach (ICD-10-PCS; principal; 2020-09-27 11:30)
DX: L02.416 Cutaneous abscess of left lower limb (principal); Z68.42 Body mass index [BMI] 45.0-49.9, adult; N17.9 Acute kidney failure, unspecified; I10 Essential (primary) hypertension; E66.9 Obesity, unspecified; D63.8 Anemia in other chronic diseases classified elsewhere; D64.9 Anemia, unspecified; E03.9 Hypothyroidism, unspecified; Z79.899 Other long term (current) drug therapy; Z88.8 Allergy status to other drugs, medicaments and biological substances; M19.90 Unspecified osteoarthritis, unspecified site

== ENCOUNTER → 2020-09-26 | Outpatient (REF) | payer MEDICARE ==
[~2020-09-26] MED LIST: ACET500T15 PO; DICL1GEL3 TOP; DULO1CAP6 PO; FURO40TA2 PO; GABA-843 PO; LEVO100T5 PO; LIDO2SOL9 SSP; MELO7.5T35 PO; MONT5TAB2 PO; MORP30TASA PO; PANT40TA29 PO
== END ==
LOC: M LAB REF 15:39
PROVIDERS: ATTEND Physician Assistant
DX: I87.312 Chronic venous hypertension (idiopathic) with ulcer of left lower extremity (principal); L02.416 Cutaneous abscess of left lower limb

== ENCOUNTER 2021-01-14 14:01 | Inpatient (IN) | payer MEDICARE, OTHER ==
[~2021-01-14] VITALS: Ht 114.3 cm; Wt 64.8 kg
[~2021-01-14 14:01] MED LIST changes: +CLIN150C15 PO; +GABA-282 PO; -GABA-843 PO; +MONT10TA10 PO; -MONT5TAB2 PO
[2021-01-14] MEDS ORDERED: MELO7.5T35 PO (16:09)
--- NOTE | 2021-01-14 16:27 | REP ---
INDICATION: pre-op. COMPARISON: Comparison chest x-ray September 26, 2020.. TECHNIQUE: Sitting upright AP chest radiograph. Obtained portably. FINDINGS: There is linear fibrosis or discoid atelectasis in the perihilar region on the left. This is unchanged. Lungs are otherwise well inflated and clear. Pleural angles are sharp. Heart is not enlarged. And there is some clothing artifact. Advanced erosive arthropathy is seen affecting the shoulders bilaterally. IMPRESSION: No active cardiopulmonary disease. 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 Linear fibrosis in the left perihilar region. <Electronically signed by Manuel Houston > 01/14/21 [id number]
[2021-01-14 17:23] LABS: HEMATOCRIT 29.7 % (36.0-47.0); HEMOGLOBIN 8.6 g/dl (12.0-15.5); PLATELET COUNT, AUTOMATED 413 10^3/uL (150-450); RED BLOOD COUNT 3.58 10^6/uL (4.00-5.40); WHITE BLOOD COUNT 7.8 10^3/uL (4.0-10.0)
[2021-01-14 17:32] LABS: INR 1.02; PROTHROMBIN TIME 13.7 SECONDS (12.5-14.3)
[2021-01-14 17:33] LABS: PARTIAL THROMBOPLASTIN TIME 38.3 SECONDS (24.2-38.5)
[2021-01-14 17:55] LABS: RSV AMPLIFICATION NEGATIVE (NEGATIVE)
[2021-01-14 17:55] LABS: CALCIUM LEVEL 8.8 MG/DL (8.8-10.2); CREATININE FOR GFR 1.03 MG/DL (0.55-1.30); GLOMERULAR FILTRATION RATE 55.6 (>39); POTASSIUM SERUM 5.2 MEQ/L (3.5-5.1)
[2021-01-14] MEDS ORDERED: VANCOMYCIN HCL 1,230 MG in IV FLUID PLACE HOLDER 1 EA IV SCH (18:30)
--- NOTE | 2021-01-14 18:52 | HPEPDOC ---
[facility] Medical History & Physical Date of Admission Jan 14, 2021 Date of Service: Jan 14, 2021 Attending Physician: MARY ALFARO MD History and Physical CHIEF COMPLAINT: left hip infection HISTORY OF PRESENT ILLNESS: 75 year old female who presents today after being seen in the outpatient setting by Dr. Castañeda for wounds on her left hip and left knee. She has been following with Dr. Castañeda for about 8 months now. She did require surgical debridement previously for a wound on her left him in September 2020. She denies any fevers or chills over the past few months. She has noted some drainage from the wound on her medial left knee. She states this is the one that Dr. Castañeda sent her here for treatment of. PAST MEDICAL HISTORY: 1. Congenital abnormalities 2. Hypertension 3. Hypothyroidism 4. Chronic pain 5. Obesity PAST SURGICAL HISTORY: 1. Bilateral hip surgeries 2. Surgical debridement of left hip wound SOCIAL HISTORY: Lives in [facility] home next to brother and sister in law Never smoker. No alcohol use. No illicit/IV drug use FAMILY HISTORY: Father and brother had myasthenia gravis. Sister had breast cancer. Grandfather had colon cancer. Reports general family history of HTN and DM. ALLERGIES: Please see below. REVIEW OF SYSTEMS: CONSTITUTIONAL: Endorses subjective fevers. Denies chills, night sweats, fatigue, unexpected change in weight. HEENT: Denies change in vision, change in hearing. CARDIOVASCULAR: Endorses some exertional shortness of breath. Denies chest pain, palpitations, lightheadedness. RESPIRATORY: Denies cough, wheezing. GASTROINTESTINAL: Denies nausea, vomiting, abdominal pain, diarrhea, constipation, blood in stool. GENITOURINARY: Denies dysuria, urinary frequency, urinary urgency. SKIN: Denies rash, new lesions. MUSCULOSKELETAL: Reports chronic bilateral shoulder and hip pain. NEUROLOGICAL: Denies headache, dizziness, weakness. PSYCHIATRIC: Denies change in mood. HOME MEDICATIONS: Please see below. PHYSICAL EXAMINATION: VITAL SIGNS: See below GENERAL: Alert, comfortable, in no acute distress HEENT: Normocephalic, atraumatic, sclera anicteric, moist mucous membranes CARDIOVASCULAR: Regular rate and rhythm, normal S1 and S2. No murmurs, rubs, or gallops RESPIRATORY: Clear to auscultation bilaterally with equal air entry bilaterally. No wheezing, rhonchi, or rales. ABDOMEN: Soft, nontender, nondistended, bowel sounds present, epigastric hernia noted which is easily reducible EXTREMITIES: Bilateral legs are short compared to her body size. No edema in the right leg. 1+ pitting edema in the left leg. Venous stasis skin changes over the left leg. Three open lesions with packing present on the medial knee, lateral knee, and lateral hip of the left leg. No surrounding erythema or induration. Drainage presented from the medial knee wound. SKIN: Multiple seborrheic keratoses of various size on her back. NEUROLOGIC: Alert and oriented x3 to person, place and time. No focal deficits appreciated. Moves all four extremities spontaneously. PSYCHIATRIC: Mood and affect appropriate LABORATORY DATA: See below. IMAGING: - CXR No active cardiopulmonary disease. 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 Linear fibrosis in the left perihilar region. MICROBIOLOGY: Please see below. ASSESSMENT: 75-year-old female with recurrent left hip infection presents to the hospital as directed by Dr. Castañeda for surgical intervention on left knee wound by Dr. Valladares, admitted by hospitalist team for perioperative management. PLAN: 1. Left medial knee infection. - WBC normal. Check CRP. - CT knee to evaluate for abscess - IV abx with vancomycin and zosyn day #1. MRSA screen pending. - Plan for surgery with Dr. Valladares on 2. Medical clearance for surgery - EKG reviewed. CXR reviewed. - Admits to baseline exertional dyspnea, uses a wheelchair at baseline due to congenital abnormalities and pain - Overall it is difficult to evaluate her functional status - No further testing recommended prior to surgical debridement by Dr. Valladares 3. Chronic anemia - hx anemia of chronic disease on prior admission - H/H stable compared to recent admission - type and screen in case she needs transfusion 4. Hypothyroidism - continue home levothyroxine 5. Chronic pain - continue home cymbalta, meloxicam, morphine sulfate, and gabapentin 6. Leg edema - continue home lasix 7. GERD - continue home protonix DVT Prophylaxis: Teds and SCDs perioperatively DISPOSITION: admitted inpatient to med/surg, pending surgical intervention Vital Signs Vital Signs Date Time Temp Pulse Resp B/P (MAP) Pulse Ox O2 Delivery O2 Flow Rate FiO2 01/14/21 14:01 97.9 90 16 149/68 (95) 93 Room Air Laboratory Data Labs 24H Laboratory Tests 2 01/14/21 17:04: Nucleated Red Blood Cells % (auto) 0.0, Prothrombin Time 13.7, Prothromb Time I nternational Ratio 1.02, Activated Partial Thromboplast Time 38.3, Anion Gap 3L, Glomerular Filtration Rate 55.6, Calcium Level 8.8 01/14/21 17:08: Coronavirus (COVID-19)(PCR) NEGATIVE, Influenza Type A (RT-PCR) NEGATIVE, Influenza Type B (RT-PCR) NEGATIVE, Respiratory Syncytial Virus (PCR) NEGATIVE CBC/BMP Laboratory Tests 01/14/21 17:04 Home Medications Scheduled Diclofenac Sodium (Diclofenac Sodium) 1% 100GM Gel..gram., 2 GRAMS TOP BID APPLIES TO SHOULDERS/LOWER BACK Duloxetine Hcl (Duloxetine HCl) 60 Mg Capsule.dr, 60 MG PO QPM Furosemide (Furosemide) 40 Mg Tablet, 40 MG PO DAILY Gabapentin (Gabapentin) 300 Mg Capsule, 300 MG PO TID Levothyroxine Sodium (Levothyroxine Sodium) 100 Mcg Tablet, 100 MCG PO DAILY Meloxicam (Meloxicam) 7.5 Mg Tablet, 7.5 MG PO BID Morphine Sulfate (Morphine Sulfate ER) 30 Mg Tablet.er, 30 MG PO BID Pantoprazole Sodium (Pantoprazole Sodium) 40 Mg Tablet.dr, 40 MG PO DAILY Scheduled PRN Acetaminophen (Acetaminophen) 500 Mg Tablet, 500 MG PO BID PRN for PAIN Allergies Coded Allergies: pregabalin (Verified Adverse Reaction, Unknown, "made me feel spaced out", 09/26/20) GME ATTESTATION GME ATTESTATION My faculty preceptor for this patient encounter was physically present during the encounter and was fully available. All aspects of the patient interview, examination, medical decision making process, and medical care plan development were reviewed and approved by the faculty preceptor. The faculty preceptor is aware and concurs with the plan as stated in the body of this note and will attest to such by his/her cosignature. ATTENDING NOTE I, Mary Alfaro, have independently examined this patient and performed my own physical exam, as well as reviewed the documentation and edited where necessary. I have discussed in detail with the resident / student the findings and plan of treatment as documented by the resident / student and edited their note. I agree with their findings and treatment plan and have edited their documentation. I will continue to follow the patient during this hospital stay. FRANCISCO GRANADO D.O. Jan 14, 2021 18:52 MARY ALFARO MD Jan 14, 2021 19:13
[2021-01-14] MEDS ORDERED: ISOVUE-370 76% 100ML VIAL As Ordered ONE (18:58)
[2021-01-14] MEDS ORDERED: CLINDAMYCIN 600 MG in IV 1 EA IV SCH (19:00)
[2021-01-14] MEDS ORDERED: PIPERACILLIN/TAZOBACTAM SOD 3.375 GM in D5W MINI-BAG PLUS 50 ML IV ONE (19:00)
--- NOTE | 2021-01-14 20:08 | ECGEPIP ---
[facility] - ED Test Date: 2021-01-14 Pat Name: CHRISSY GIPSON Department: Room: - Gender: Female Broadcast Director Operations: AZUCENA : 1945 Requested By: Haja Mckay Order Number: [id number] Reading MD: Salina Mcmanus Measurements Intervals [place] Rate: 72 P: 42 TN: 168 QRS: 9 QRSD: 64 T: 18 QT: 366 QTc: 400 Interpretive Statements Normal sinus rhythm NSTTW abnormalities decreased rate 09/26/20 Electronically Signed on 01-14-2021 20:07:43 EDT by Salina Mcmanus
--- NOTE | 2021-01-14 20:15 | REPVR ---
PROCEDURE INFORMATION: Exam: CT Left Lower Extremity Without Contrast, Knee Exam date and time: 01/14/2021 7:41 PM Age: 75 years old Clinical indication: Swelling, leg or foot; Additional info: Wound TECHNIQUE: Imaging protocol: CT of the Left lower extremity without contrast was performed. Exam focused on the knee. Radiation optimization: All CT scans at this facility use at least one of these dose optimization techniques: automated exposure control; mA and/or kV adjustment per patient size (includes targeted exams where dose is matched to clinical indication); or iterative reconstruction. COMPARISON: No relevant prior studies available. FINDINGS: Bones/joints: Status post ORIF left femur. Osteoporosis. Soft tissues: Diffuse skin thickening in the thigh and proximal calf with subcutaneous edema. Findings consistent with diffuse inflammation and or infection including cellulitis. No well-defined abscess demonstrated. IMPRESSION: 1. Diffuse skin thickening in the thigh and proximal calf with subcutaneous edema. Findings consistent with diffuse inflammation and or infection including cellulitis. No well-defined abscess demonstrated. 2. Status post ORIF left femur. Electronically signed by: Barber Agustin On 01/14/2021 20:15:46 PM
[2021-01-14] MEDS: MELOXICAM (MOBIC) 7.5 MG TAB PO SCH (21:00)
[2021-01-14 21:45] VITALS: BP 135/78
[2021-01-14 21:54] LABS: CALCIUM LEVEL 8.5 MG/DL (8.8-10.2); CREATININE FOR GFR 1.3 MG/DL (0.55-1.30); GLOMERULAR FILTRATION RATE 42.5 (>39); POTASSIUM SERUM 4.1 MEQ/L (3.5-5.1)
[2021-01-14] MEDS ORDERED: VANCOMYCIN HCL 750 MG, VIAL MATE ADAPTER 1 EACH in NS 250 ML IV ONE (22:00)
[2021-01-14] MEDS ORDERED: VANCOMYCIN HCL 500 MG in D5W MINI-BAG PLUS 100 ML IV ONE (22:00)
[2021-01-14] MEDS: GABAPENTIN 300 MG CAP PO SCH (23:13)
[2021-01-14] MEDS: DULoxetine 30 MG CAP (CYMBALTA) PO SCH (23:13)
[2021-01-14] MEDS: MORPHINE 30 MG SA TAB PO SCH (23:14)
[2021-01-14] MEDS: VANCOMYCIN HCL 1,000 MG, VIAL MATE ADAPTER 1 EACH in NS 250 ML IV SCH (23:15)
[2021-01-15 00:32] LABS: HEMATOCRIT 24.6 % (36.0-47.0); HEMOGLOBIN 7.4 g/dl (12.0-15.5)
[2021-01-15] MEDS: PIPERACILLIN/TAZOBACTAM SOD 3.375 GM in D5W MINI-BAG PLUS 50 ML IV SCH ×4 (01:59→20:32)
[2021-01-15 06:00] VITALS: BP 147/77
[2021-01-15] MEDS: LEVOTHYROXINE 100MCG TABLET (0.1MG) PO SCH (06:13)
[2021-01-15] MEDS: FUROSEMIDE 40 MG TAB PO SCH (08:01)
[2021-01-15] MEDS: PANTOPRAZOLE 40MG TAB (PROTONIX) PO SCH (08:01)
[2021-01-15] MEDS: GABAPENTIN 300 MG CAP PO SCH ×3 (08:01→20:33)
[2021-01-15] MEDS: MORPHINE 30 MG SA TAB PO SCH ×2 (08:01→20:33)
[2021-01-15] MEDS: MELOXICAM (MOBIC) 7.5 MG TAB PO SCH ×2 (08:01→20:34)
[2021-01-15 08:07] LABS: BASO % 0.2 % (0.0-1.0); HEMATOCRIT 26.3 % (36.0-47.0); HEMOGLOBIN 7.7 g/dl (12.0-15.5); LYMPH # 1.3 10^3/uL (1.5-5.0); LYMPH % 22.3 % (24.0-44.0); MEAN CORPUSCULAR HEMOGLOBIN 24.4 pg (27.0-33.0); MEAN CORPUSCULAR HGB CONC 29.3 g/dl (32.0-36.5); MEAN CORPUSCULAR VOLUME 83.5 fl (80.0-96.0); MONO # 0.6 10^3/uL (0.0-0.8); MONO % 10.7 % (2.0-8.0); NEUTROPHILS % 66.5 % (36.0-66.0); PLATELET COUNT, AUTOMATED 316 10^3/uL (150-450); RED BLOOD COUNT 3.15 10^6/uL (4.00-5.40)
[2021-01-15 08:33] LABS: C REACTIVE PROTEIN QUANTITATIV 4.88 MG/DL (0.00-0.30); CREATININE FOR GFR 1.23 MG/DL (0.55-1.30); GLOMERULAR FILTRATION RATE 45.3 (>39); MAGNESIUM LEVEL 2.3 MG/DL (1.8-2.4); POTASSIUM SERUM 4.3 MEQ/L (3.5-5.1)
--- NOTE | 2021-01-15 11:41 | IPNPDOC ---
Text Note Date of Service The patient was seen on 01/15/21. NOTE SUBJECTIVE: Patient was seen and examined at bedside. She is feeling well without any complaints. She understands she will be going to surgery with Dr. Valladares later this week. We discussed the possible need for blood transfusion prior to surgery and patient is agreeable. OBJECTIVE: VITAL SIGNS: See below GENERAL: Alert, comfortable, in no acute distress HEENT: Normocephalic, atraumatic, sclera anicteric, moist mucous membranes CARDIOVASCULAR: Regular rate and rhythm, normal S1 and S2. No murmurs, rubs, or gallops RESPIRATORY: Clear to auscultation bilaterally with equal air entry bilaterally. No wheezing, rhonchi, or rales. ABDOMEN: Soft, nontender, nondistended, bowel sounds present, epigastric hernia noted which is easily reducible EXTREMITIES: Bilateral legs are short compared to her body size. No edema in the right leg. 1+ pitting edema in the left leg. Venous stasis skin changes over the left leg. Three open lesions with packing present on the medial knee, lateral knee, and lateral hip of the left leg. No surrounding erythema or induration. Drainage presented from the medial knee wound. SKIN: Multiple seborrheic keratoses of various size on her back. NEUROLOGIC: Alert and oriented x3 to person, place and time. No focal deficits appreciated. Moves all four extremities spontaneously. PSYCHIATRIC: Mood and affect appropriate ASSESSMENT/PLAN: 75-year-old female with recurrent left hip infection presents to the hospital for surgical debridement of left knee wound, admitted by hospitalist team for perioperative management. # Left medial knee infection. - WBC normal. CRP elevated - CT knee shows diffuse thickening with cellulitis, no abscess - IV abx with vancomycin and zosyn day #2. - Plan for surgery with Dr. Valladares on # Chronic anemia - hx anemia of chronic disease on prior admission - H/H stable compared to recent admission - type and screen in case she needs transfusion # Hypothyroidism - continue home levothyroxine # Chronic pain - continue home cymbalta, meloxicam, morphine sulfate, and gabapentin # Leg edema - continue home lasix # GERD - continue home protonix DVT Prophylaxis: Teds and SCDs perioperatively DISPOSITION: admitted inpatient to med/surg, pending surgical intervention Attending Attestation: Patient independently seen and examined. I have discussed in detail with the resident / student the findings and plan of treatment as documented by the resident / student. I agree with their findings and treatment plan and have brandon opal their documentation. I will continue to follow the patient during this hospital stay. VS,Fishbone, I+O VS, Fishbone, I+O Laboratory Tests 01/14/21 17:04 01/14/21 21:17 01/15/21 00:19 01/15/21 07:46 Vital Signs Date Time Temp Pulse Resp B/P (MAP) Pulse Ox O2 Delivery O2 Flow Rate FiO2 01/15/21 08:01 16 01/15/21 06:00 98.0 82 147/77 (100) 95 Room Air I&O- Last 24 Hours up to 6 AM 01/15/21 06:00 Intake Total 240 ml Output Total 250 ml Balance -10 ml FRANCISCO GRANADO D.O. Jan 15, 2021 11:41 TESHA MCGUIRE MD Jan 16, 2021 09:19
[2021-01-15 14:00] VITALS: BP 93/68
--- NOTE | 2021-01-15 18:08 | CR.PDOC ---
Plastic Surgery Consultation Date of Consultation 01/15/21 History and Physical CONSULT REPORT FOR: Medical team REASON FOR CONSULTATION: Left leg open wounds x 3 HISTORY OF PRESENT ILLNESS: 75 y/o female well known to our service with 3 open wound 2 on each side of the knee and one left upper hip. Patient has hip prostesis with circlage wires and a pin in the left femur. She has been followed in the wound care for her wounds. She had previous debridement done with us for the knee and hip wounds in September 2020. She is feeling ok today. PAST MEDICAL HISTORY: Congenital abnormalities Hypertension Hypothyroidism Chronic pain Obesity PAST SURGICAL HISTORY: INCLUDES: Wound debridement. Bilateral hip surgeries. PREVIOUS ANESTHESIA REACTIONS: denies ALLERGIES: Please see below. FAMILY HISTORY: non contributory HOME MEDICATIONS: Please see below. REVIEW OF SYSTEMS: GENERAL: Denies chills, reports weight gain,. HEENT: Denies blurred vision and double vision. Denies ear symptoms. Denies hoarseness. NECK: Denies any neck pain]. CARDIOVASCULAR: Denies chest pain and palpitations. MUSCULOSKELETAL: Denies arthralgias, back pain and thrombophlebitis. SKIN: Denies rash. Chronic open wounds NEUROLOGIC: Denies headache, stroke and transient ischemic attack. PSYCHIATRIC: Denies anxiety and depression. ENDOCRINE: Denies thyroid disease. HEMATOLOGY/ONCOLOGY: Denies bleeding or clotting disorder. HEART: Denies any chest pains, palpitations, paroxysmal dyspnea, orthopnea. PULMONARY: Denies chronic cough, dyspnea and wheezing. GASTROINTESTINAL: Denies rectal bleeding, family history of colon cancer, constipation, diarrhea, dysphagia, heartburn and jaundice. GENITOURINARY: Denies dysuria, frequency, hematuria and nocturia. ENDOCRINE: Denies polydipsia, polyphagia, polyuria, heat or cold intolerance. INFECTIOUS: Denies any recent upper respiratory tract infection, UTI, need for use of antibiotics. NUTRITION: Reports good appetite. PHYSICAL EXAMINATION: VITALS SIGNS: Please see below. GENERAL APPEARANCE:Patient seen, laying in bed, awake, alert, and oriented. Comfortable, in no acute distress. SKIN: Warm and moist. Open wounds 1x2 cm left medial knee, 1x2cm lateral left knee, 1x1cm Left hip. All wounds with unknown depths NECK: Supple, no thyromegaly. No obvious jugular venous distention. LUNGS: Clear to auscultation bilaterally. No wheezing appreciated. HEART: No chest wall abnormalities. Regular rate and rhythm with no murmurs appreciated. ABDOMEN: Abdomen is soft, non-tender, non-distended. EXTREMITIES: No edema identified. No calf tenderness. Both LE with congenital deformities. LABORATORY DATA: Please see below. IMAGING STUDIES: CT scan of the knee and hip. IMPRESSION: chronic wounds left medial and lateral knee, left hip PLANS: Plan for surgical debridement. Transfuse PRBC today, keep Hb above 8.5 [address] the debridement. CT findings discussed with patient. Prosthesis in place, close to the open wound track.a NPO after midnight. Finding discussed with patient and sister in law Lyons, who is present at the bedside. Vital Signs Vital Signs Date Time Temp Pulse Resp B/P (MAP) Pulse Ox O2 Delivery O2 Flow Rate FiO2 01/15/21 14:00 98.3 97 16 93/68 (76) 96 Room Air I&Os I&O- Last 24 Hours up to 6 AM 01/15/21 06:00 Intake Total 240 ml Output Total 250 ml Balance -10 ml Laboratory Data Labs 24H Laboratory Tests 2 01/14/21 20:45: Methicillin-Resist S.aureus DNA PCR NOT DETECTED 01/14/21 21:17: Anion Gap 8, Glomerular Filtration Rate 42.5, Calcium Level 8.5L 01/15/21 07:46: Anion Gap 6L, Glomerular Filtration Rate 45.3, Calcium Level 9.0, Immature Granulocyte % (Auto) 0.3, Neutrophils (%) (Auto) 66.5H, Lymphocytes (%) (Auto) 22.3L, Monocytes (%) (Auto) 10.7H, Eosinophils (%) (Auto) 0.0, Basophils (%) (Auto) 0.2, Neutrophils # (Auto) 4.0, Lymphocytes # (Auto) 1.3L, Monocytes # (Auto) 0.6, Eosinophils # (Auto) 0.0, Basophils # (Auto) 0.0, Nucleated Red Blood Cells % (auto) 0.0, Magnesium Level 2.3, C-Reactive Protein, Quantitative 4.88H CBC/BMP Laboratory Tests 01/14/21 21:17 01/15/21 00:19 01/15/21 07:46 Home Medications Scheduled Diclofenac Sodium (Diclofenac Sodium) 1% 100GM Gel..gram., 2 GRAMS TOP BID, (Reported) APPLIES TO SHOULDERS/LOWER BACK Duloxetine Hcl (Duloxetine HCl) 60 Mg Capsule.dr, 60 MG PO QPM, (Reported) Furosemide (Furosemide) 40 Mg Tablet, 40 MG PO DAILY, (Reported) Gabapentin (Gabapentin) 300 Mg Capsule, 300 MG PO TID, (Reported) Levothyroxine Sodium (Levothyroxine Sodium) 100 Mcg Tablet, 100 MCG PO DAILY, (Reported) Meloxicam (Meloxicam) 7.5 Mg Tablet, 7.5 MG PO BID, (Reported) Morphine Sulfate (Morphine Sulfate ER) 30 Mg Tablet.er, 30 MG PO BID, (Reported) Pantoprazole Sodium (Pantoprazole Sodium) 40 Mg Tablet.dr, 40 MG PO DAILY, ( Reported) Scheduled PRN Acetaminophen (Acetaminophen) 500 Mg Tablet, 500 MG PO BID PRN for PAIN, (Reported) Allergies Coded Allergies: pregabalin (Verified Adverse Reaction, Unknown, "made me feel spaced out", 09/26/20) NAVYA RIVERA DO Jan 15, 2021 18:08
[2021-01-15] MEDS: DULoxetine 30 MG CAP (CYMBALTA) PO SCH (20:33)
[2021-01-15] MEDS: VANCOMYCIN HCL 1,000 MG, VIAL MATE ADAPTER 1 EACH in NS 250 ML IV SCH (21:44)
[2021-01-15] MEDS: ACETAMINOPHEN 500 MG TAB PO PRN (21:47)
[2021-01-15 22:00] VITALS: BP 157/75
[2021-01-16] MEDS: PIPERACILLIN/TAZOBACTAM SOD 3.375 GM in D5W MINI-BAG PLUS 50 ML IV SCH ×4 (02:29→20:09)
[2021-01-16] MEDS: LEVOTHYROXINE 100MCG TABLET (0.1MG) PO SCH (05:41)
[2021-01-16 05:49] VITALS: BP 158/77
[2021-01-16 06:04] VITALS: BP 143/73
[2021-01-16 06:49] VITALS: BP 167/77
[2021-01-16 07:30] VITALS: BP 153/76
[2021-01-16 08:12] LABS: HEMATOCRIT 30.4 % (36.0-47.0); HEMOGLOBIN 9.3 g/dl (12.0-15.5); LYMPH # 1.4 10^3/uL (1.5-5.0); LYMPH % 20.9 % (24.0-44.0); MEAN CORPUSCULAR HEMOGLOBIN 25.5 pg (27.0-33.0); MEAN CORPUSCULAR HGB CONC 30.6 g/dl (32.0-36.5); MEAN CORPUSCULAR VOLUME 83.3 fl (80.0-96.0); MONO # 0.7 10^3/uL (0.0-0.8); MONO % 9.8 % (2.0-8.0); NEUTROPHILS # 4.6 10^3/uL (1.5-8.5); PLATELET COUNT, AUTOMATED 313 10^3/uL (150-450); RED BLOOD COUNT 3.65 10^6/uL (4.00-5.40); WHITE BLOOD COUNT 6.6 10^3/uL (4.0-10.0)
[2021-01-16 08:32] LABS: CALCIUM LEVEL 8.6 MG/DL (8.8-10.2); CREATININE FOR GFR 1.49 MG/DL (0.55-1.30); GLOMERULAR FILTRATION RATE 36.3 (>39); MAGNESIUM LEVEL 2.3 MG/DL (1.8-2.4); POTASSIUM SERUM 4.3 MEQ/L (3.5-5.1)
[2021-01-16] MEDS: MELOXICAM (MOBIC) 7.5 MG TAB PO SCH ×2 (09:06→20:10)
[2021-01-16] MEDS: GABAPENTIN 300 MG CAP PO SCH ×3 (09:06→20:09)
[2021-01-16] MEDS: MORPHINE 30 MG SA TAB PO SCH ×2 (09:07→20:10)
[2021-01-16] MEDS: PANTOPRAZOLE 40MG TAB (PROTONIX) PO SCH (09:07)
[2021-01-16] MEDS: FUROSEMIDE 40 MG TAB PO SCH (09:07)
--- NOTE | 2021-01-16 10:12 | IPNPDOC ---
Text Note Date of Service The patient was seen on 01/16/21. NOTE SUBJECTIVE: Patient was seen and examined at bedside. She states she is feeling well, no new concerns. She understands the plan for surgery later this afternoon. She denies any current pain in her left knee. OBJECTIVE: VITAL SIGNS: See below GENERAL: Alert, comfortable, in no acute distress HEENT: Normocephalic, atraumatic, sclera anicteric, moist mucous membranes CARDIOVASCULAR: Regular rate and rhythm, normal S1 and S2. No murmurs, rubs, or gallops RESPIRATORY: Clear to auscultation bilaterally with equal air entry bilaterally. No wheezing, rhonchi, or rales. ABDOMEN: Soft, nontender, nondistended, bowel sounds present, epigastric hernia noted which is easily reducible EXTREMITIES: Bilateral legs are short compared to her body size. No edema in the right leg. 1+ pitting edema in the left leg. Venous stasis skin changes over the left leg. Three open lesions with packing present on the medial knee, lateral knee, and lateral hip of the left leg. No surrounding erythema or induration. Drainage presented from the medial knee wound. SKIN: Multiple seborrheic keratoses of various size on her back. NEUROLOGIC: Alert and oriented x3 to person, place and time. No focal deficits appreciated. Moves all four extremities spontaneously. PSYCHIATRIC: Mood and affect appropriate ASSESSMENT/PLAN: 75-year-old female with recurrent left hip infection presents to the hospital for surgical debridement of left knee wound, admitted by hospitalist team for perioperative management. # Left medial knee infection. - WBC normal. CRP elevated - CT knee shows diffuse thickening with cellulitis, no abscess - IV abx with vancomycin and zosyn day #3. - Plan for surgery with Dr. Valladares today # Chronic anemia - hx anemia of chronic disease on prior admission - H/H stable compared to recent admission - 2 units tranfusing this morning preoperatively. goal Hg > 8.5 # Hypothyroidism - continue home levothyroxine # Chronic pain - continue home cymbalta, meloxicam, morphine sulfate, and gabapentin # Leg edema - continue home lasix # GERD - continue home protonix DVT Prophylaxis: Teds and SCDs perioperatively DISPOSITION: admitted inpatient to med/surg, pending surgical intervention Attending Attestation: Patient independently seen and examined. I have discussed in detail with the resident / student the findings and plan of treatment as documented by the resident / student. I agree with their findings and treatment plan and have edited their documentation. I will continue to follow the patient during this hospital stay. VSKajal, I+O VSKajal, I+O Laboratory Tests 01/16/21 07:56 Vital Signs Date Time Temp Pulse Resp B/P (MAP) Pulse Ox O2 Delivery O2 Flow Rate FiO2 01/16/21 09:07 18 01/16/21 06:49 97.1 81 167/77 95 Room Air I&O- Last 24 Hours up to 6 AM 01/16/21 06:00 Intake Total 1620 ml Output Total 400 ml Balance 1220 ml FRANCISCO GRANADO D.O. Jan 16, 2021 10:12 TESHA MCGUIRE MD Jan 18, 2021 06:58
[2021-01-16 14:00] VITALS: BP 126/74
[2021-01-16] MEDS: DULoxetine 30 MG CAP (CYMBALTA) PO SCH (20:10)
[2021-01-16] MEDS ORDERED: VANCOMYCIN INTERMITTENT/PULSE DOSING BY CLINICAL PHARMACIST PER DOSING PROTOCOL XX SCH (20:35)
[2021-01-16 22:00] VITALS: BP 124/73
[2021-01-17] VITALS (8 sets, daily range): BP systolic 107–137; BP diastolic 65–82
[2021-01-17] MEDS: PIPERACILLIN/TAZOBACTAM SOD 3.375 GM in D5W MINI-BAG PLUS 50 ML IV SCH ×4 (02:16→20:20)
[2021-01-17] MEDS: LEVOTHYROXINE 100MCG TABLET (0.1MG) PO SCH (06:33)
[2021-01-17] MEDS: ACETAMINOPHEN 500 MG TAB PO PRN (06:34)
[2021-01-17 06:38] LABS: HEMATOCRIT 31.5 % (36.0-47.0); HEMOGLOBIN 9.3 g/dl (12.0-15.5); LYMPH # 1.2 10^3/uL (1.5-5.0); LYMPH % 19.3 % (24.0-44.0); MEAN CORPUSCULAR HEMOGLOBIN 24.7 pg (27.0-33.0); MEAN CORPUSCULAR HGB CONC 29.5 g/dl (32.0-36.5); MEAN CORPUSCULAR VOLUME 83.8 fl (80.0-96.0); MONO # 0.5 10^3/uL (0.0-0.8); MONO % 8.4 % (2.0-8.0); NEUTROPHILS # 4.3 10^3/uL (1.5-8.5); NEUTROPHILS % 71.6 % (36.0-66.0); PLATELET COUNT, AUTOMATED 318 10^3/uL (150-450); RED BLOOD COUNT 3.76 10^6/uL (4.00-5.40); WHITE BLOOD COUNT 6.1 10^3/uL (4.0-10.0)
[2021-01-17 07:01] LABS: CALCIUM LEVEL 8.1 MG/DL (8.8-10.2); CREATININE FOR GFR 1.47 MG/DL (0.55-1.30); GLOMERULAR FILTRATION RATE 36.9 (>39); MAGNESIUM LEVEL 2.1 MG/DL (1.8-2.4); POTASSIUM SERUM 3.6 MEQ/L (3.5-5.1); VANCOMYCIN RANDOM 19.7 UG/ML
[2021-01-17] MEDS: MORPHINE 30 MG SA TAB PO SCH ×2 (09:00→20:23)
[2021-01-17] MEDS: MELOXICAM (MOBIC) 7.5 MG TAB PO SCH ×2 (09:00→20:20)
[2021-01-17] MEDS: GABAPENTIN 300 MG CAP PO SCH ×3 (09:00→20:20)
--- NOTE | 2021-01-17 09:53 | IPNPDOC ---
Subjective General Date Seen: Jan 17, 2021 Subject Chief Complaint/History The patient is a 75-year-old female admitted with a reason for visit of Chronic Ulcer Of Leg. Patient s/p transfusion. Ready for surgery for irrigation and debridement of left knee and hip wounds. No new events. Current Medications Current Medications Current Medications Medications (Trade) Dose Ordered Sig/Joanne Route PRN Reason Start Time Stop Time Status Last Admin Dose Admin Acetaminophen (Tylenol Tab) 500 mg BID PRN PO PAIN 01/14/21 18:30 01/15/21 21:47 Clindamycin Phosphate 600 mg/ IV Miscellaneous Supplies 50 ml @ 100 mls/hr Q6H IV 01/14/21 19:00 01/14/21 18:41 DC Duloxetine HCl (Cymbalta) 60 mg QPM PO 01/14/21 21:00 01/16/21 20:10 Furosemide (Lasix) 40 mg DAILY PO 01/15/21 09:00 01/16/21 09:07 Gabapentin (Neurontin) 300 mg TID PO 01/14/21 21:00 01/16/21 20:09 Home Med (Med Rec Complete!) ASDIRECTED XX 01/14/21 16:10 01/14/21 16:13 DC Levothyroxine Sodium (Synthroid) 100 mcg DAILY@0600 PO 01/15/21 06:00 01/17/21 06:33 Meloxicam (Mobic) 7.5 mg BID PO 01/14/21 21:00 01/16/21 20:10 Morphine Sulfate (Ms Contin) 30 mg BID PO 01/14/21 21:00 01/16/21 20:10 Non-Formulary Medication ( See Comment Field Below ) VANCO INTERMIT. DOSING ASDIRECTED XX 01/16/21 20:35 Pantoprazole Sodium (Protonix) 40 mg DAILY PO 01/15/21 09:00 01/16/21 09:07 Piperacillin Sod/ Tazobactam Sod 3.375 gm/Dextrose 50 ml @ 50 mls/hr Q6H IV 01/15/21 02:00 01/17/21 08:24 Vancomycin HCl 1000 mg/IV Miscellaneous Supplies 1 each/ Sodium Chloride 270 ml @ 270 mls/hr Q24H IV 01/14/21 21:00 01/16/21 20:30 DC 3/30/21 21:44 Vancomycin HCl 1230 mg/IV Miscellaneous Supplies 24.6 ml @ 24.6 mls/hr Q12H IV 01/14/21 18:30 01/14/21 19:21 DC Allergies Coded Allergies: pregabalin (Verified Adverse Reaction, Unknown, "made me feel spaced out", 09/26/20) Objective Physical Examination Examination GENERAL APPEARANCE:Patient seen, laying in bed, awake, alert, and oriented. Comfortable, in no acute distress. SKIN: Warm and moist. Left knee medial and lateral wound, left lateral hip wound. Clear drainage. LUNGS: Clear to auscultation bilaterally. No wheezing appreciated. HEART: No chest wall abnormalities. Regular rate and rhythm with no murmurs appreciated. ABDOMEN: Abdomen is soft, non-tender, non-distended. EXTREMITIES: No edema identified. No calf tenderness. Vital Signs Vital Signs Date Time Temp Pulse Resp B/P (MAP) Pulse Ox O2 Delivery O2 Flow Rate FiO2 01/17/21 06:00 97.7 87 18 132/73 (92) 95 Room Air I&Os I&O- Last 24 Hours up to 6 AM 01/17/21 05:59 Intake Total 1310 ml Output Total 200 ml Balance 1110 ml Laboratory Data Labs 24H Laboratory Tests 2 01/16/21 19:51: Vancomycin Level Trough 30.7*H 01/17/21 06:10: Immature Granulocyte % (Auto) 0.7, Neutrophils (%) (Auto) 71.6H, Lymphocytes (%) (Auto) 19.3L, Monocytes (%) (Auto) 8.4H, Eosinophils (%) (Auto) 0.0, Basophils (%) (Auto) 0.0, Neutrophils # (Auto) 4.3, Lymphocytes # (Auto) 1.2L, Monocytes # (Auto) 0.5, Eosinophils # (Auto) 0.0, Basophils # (Auto) 0.0, Nucleated Red Blood Cells % (auto) 0.0, Anion Gap 6L, Glomerular Filtration Rate 36.9L, Calcium Level 8.1L, Magnesium Level 2.1, Random Vancomycin Level 19.7 CBC/BMP Laboratory Tests 01/17/21 06:10 Impression Left knee and hip chronic wounds. OR today for irrigation and debridement of Left medial and lateral knee and lateral hip wounds. Risks, benefits and alternatives discussed with patient. She is ready to proceed. Plan / VTE VTE Prophylaxis Ordered?: Yes NAVYA RIVERA DO Jan 17, 2021 09:53
--- NOTE | 2021-01-17 10:08 | IPNPDOC ---
Text Note Date of Service The patient was seen on 01/17/21. NOTE SUBJECTIVE: Patient was seen and examined at bedside. She states she is frustrated with still being in the hospital. She denies any pain in her knee currently. OBJECTIVE: VITAL SIGNS: See below GENERAL: Alert, comfortable, in no acute distress HEENT: Normocephalic, atraumatic, sclera anicteric, moist mucous membranes CARDIOVASCULAR: Regular rate and rhythm, normal S1 and S2. No murmurs, rubs, or gallops RESPIRATORY: Clear to auscultation bilaterally with equal air entry bilaterally. No wheezing, rhonchi, or rales. ABDOMEN: Soft, nontender, nondistended, bowel sounds present, epigastric hernia noted which is easily reducible EXTREMITIES: Bilateral legs are short compared to her body size. No edema in the right leg. 1+ pitting edema in the left leg. Venous stasis skin changes over the left leg. Three open lesions with packing present on the medial knee, lateral knee, and lateral hip of the left leg. No surrounding erythema or induration. Drainage presented from the medial knee wound. SKIN: Multiple seborrheic keratoses of various size on her back. NEUROLOGIC: Alert and oriented x3 to person, place and time. No focal deficits appreciated. Moves all four extremities spontaneously. PSYCHIATRIC: Mood and affect appropriate ASSESSMENT/PLAN: 75-year-old female with recurrent left hip infection presents to the hospital for surgical debridement of left knee wound, admitted by hospitalist team for p erioperative management. # Left medial knee infection. - WBC normal. CRP elevated - CT knee shows diffuse thickening with cellulitis, no abscess - IV abx with vancomycin and zosyn day #4 - Plan for surgery with Dr. Valladares today, was delayed from yesterday # Chronic anemia - hx anemia of chronic disease on prior admission - H/H stable compared to recent admission - s/p 1 units PRBC. goal Hg > 8.5 preoperatively # Hypothyroidism - continue home levothyroxine # Chronic pain - continue home cymbalta, meloxicam, morphine sulfate, and gabapentin # Leg edema - continue home lasix # GERD - continue home protonix DVT Prophylaxis: Teds and SCDs perioperatively DISPOSITION: pending surgical intervention expect d/c home Attending Attestation: Patient independently seen and examined. I have discussed in detail with the resident / student the findings and plan of treatment as documented by the resident / student. I agree with their findings and treatment plan and have edited their documentation. I will continue to follow the patient during this hospital stay. Kajal CAMPBELL, I+O VSKajal, I+O Laboratory Tests 01/17/21 06:10 Vital Signs Date Time Temp Pulse Resp B/P (MAP) Pulse Ox O2 Delivery O2 Flow Rate FiO2 01/17/21 06:00 97.7 87 18 132/73 (92) 95 Room Air I&O- Last 24 Hours up to 6 AM 01/17/21 06:00 Intake Total 1310 ml Output Total 200 ml Balance 1110 ml FRANCISCO GRANADO D.O. Jan 17, 2021 10:08 TESHA MCGUIRE MD Jan 18, 2021 07:19
[2021-01-17] MEDS ORDERED: MIDAZOLAM INJ 2MG/2ML VIAL (J2250 PER 1MG) As Ordered ONE (10:09)
[2021-01-17] MEDS ORDERED: dexameTHASONE 4 MG/ML 1ML VIAL (J1100 PER 1MG) As Ordered ONE (10:09)
[2021-01-17] MEDS ORDERED: propofoL 200 MG/20 ML VIAL As Ordered ONE (10:09)
[2021-01-17] MEDS ORDERED: LIDOCAINE 2% 100MG/5ML SDV (FOR ANES.) As Ordered ONE (10:09)
[2021-01-17] MEDS ORDERED: ONDANSETRON 4MG/2ML VIAL As Ordered ONE (10:09)
[2021-01-17] MEDS ORDERED: fentaNYL 100 MCG/2 ML INJECTION (J3010) As Ordered ONE (10:10)
[2021-01-17] MEDS ORDERED: BACITRACIN PWD 50,000 UNITS VIAL As Ordered ONE (10:38)
[2021-01-17] MEDS ORDERED: ePHEDrine SULFATE 25 MG/5 ML(5MG/ML) SYRINGE As Ordered ONE (10:56)
[2021-01-17] MEDS ORDERED: PHENYLephrine 500MCG 5ML (100MCG/ML) SYRINGE As Ordered ONE (11:00)
[2021-01-17] MEDS ORDERED: ACETAMINOPHEN 1000MG 100ML IV BTL (OFIRMEV) (J0131 PER 10MG) As Ordered ONE (11:24)
--- NOTE | 2021-01-17 11:37 | REP ---
INDICATION: LEFT LEG WOUND WITH METAL. COMPARISON: CT knee 01/14/2021, CT hip 09/26/2020 TECHNIQUE: Three images C-arm fluoroscopy left hip and the knee provided. FINDINGS: Initial image shows a total hip arthroplasty with the acetabular cup and component with screw into the igiugig acetabulum the femoral head appearing to articulate normally with the long stem femoral prosthesis seen in part along with side plate and cerclage wires around the subtrochanteric to proximal femoral shaft region. The other 2 images are of the knee with the long stem process of the femoral component of the knee arthroplasty extending onto the distal femur along with the compression sideplate, screws and cerclage wire all of them as seen on the CT communication arts lecturer film 09/26/2020. I do not see any definite hardware failure. Single probe on the image of the hip and the last image of the knee also present on these views. IMPRESSION: C-arm fluoroscopic views of the left hip and knee as described. Fluoroscopy time: 12 seconds. <Electronically signed by Wilmer Young > 01/17/21 1139
--- NOTE | 2021-01-17 11:55 | ROOPDOC ---
[facility] Report Of Operation Report of Operation DATE OF PROCEDURE: 01/17/21 PREOPERATIVE DIAGNOSIS: Chronic wound left medial, left lateral knee and left hip POSTOPERATIVE DIAGNOSIS: same FINDINGS: Left medial wound 1x0.5x9cm, left lateral knee 0.5x0.5x2cm, Left hip 0.5x0.5x7cm PROCEDURE: Irrigation and debridement of Left hip, Left medial and lateral knee chronic wounds SURGEON: Dr Rivera ANESTHESIA: General SPECIMENS: Cultures, debrided tissue Left hip, Left medial and lateral knee chronic wounds ESTIMATED BLOOD LOSS: 50 cc REPLACED: none DRAINS: none Wound vac on Left medial and Left hip wounds COMPLICATIONS: none POSTOPERATIVE CONDITION: stable 160 mg EpiFix powder Procedure: this is a 75-year-old female with chronic wounds on her left hip left medial knee and left lateral knee. Patient had been previously debrided by us in September 2020 and followed by wound care for all those wounds, but hit a plateau in healing. Patient is scheduled for irrigation and debridement of wounds today. Informed consent was obtained. Risk, benefits, and alternatives were discussed with patient in details. Patient has left hip hardware which was evaluated on CT scan preoperatively. We plan to use C arm to evaluate the track of her current wounds today. Patient brought into the operating room, placed in supine position, perioperative antibiotics given. compression stockings placed on the right lower calf. General anesthesia is induced. She is prepped and draped in the usual sterile fashion. We started our procedure with culturing all the wounds. Then we used measure probe which was inserted in each wound and x-ray was taken. Left hip and left medial knee wounds were tracking to the hardware. Left lateral knee wound does not reach the bone. Excisional debridement and irrigation was done to all 3 wounds using 10 blade, electrocautery, and curettes. Wound measured after debridement completed. Left hip wound 1 x 1.5 x 7 cm, left lateral knee wound 1.5 x 1.5 x 2 cm, left medial knee wound 3 x 2 x 9 cm. Wounds have been irrigated with bacitracin irrigation solution total 3 mL. Powdered epi fix 160 mg was diluted with 6 mL of normal saline and injected subcutaneously in all 3 wounds. Dressings: Lateral knee wound with iodoform packing and pressure dressing. Left hip wound and left medial knee wound with wound VAC. Wound VAC at 125 mm of pressure. Patient tolerated procedure well, she was extubated in the operating room without difficulties. She was transferred to recovery room in stable condition. NAVYA RIVERA DO Jan 17, 2021 11:55
[2021-01-17] MEDS ORDERED: ONDANSETRON 4MG/2ML VIAL IV PRN (12:10)
[2021-01-17] MEDS ORDERED: oxyCODONE 5MG TAB PO PRN (12:10)
[2021-01-17] MEDS ORDERED: HYDROMORPHONE HCL 0.5 MG/ 0.5 ML SYRINGE (J1170 PER 1) IV PRN (12:10)
[2021-01-17] MEDS ORDERED: LR 1,000 ML IV SCH (12:10)
[2021-01-17] MEDS ORDERED: fentaNYL 100 MCG/2 ML INJECTION (J3010) IV PRN (12:10)
[2021-01-17] MEDS: PANTOPRAZOLE 40MG TAB (PROTONIX) PO SCH (16:49)
[2021-01-17] MEDS: FUROSEMIDE 40 MG TAB PO SCH (16:49)
[2021-01-17 17:11] LABS: PERCENT SATURATION 10.8 % (13.2-45.0)
[2021-01-17] MEDS: DULoxetine 30 MG CAP (CYMBALTA) PO SCH (20:20)
[2021-01-18] VITALS (9 sets, daily range): BP systolic 105–122; BP diastolic 58–69
[2021-01-18] MEDS: PIPERACILLIN/TAZOBACTAM SOD 3.375 GM in D5W MINI-BAG PLUS 50 ML IV SCH ×4 (01:09→20:55)
[2021-01-18] MEDS: LEVOTHYROXINE 100MCG TABLET (0.1MG) PO SCH (06:22)
[2021-01-18 07:03] LABS: BASO % 0.2 % (0.0-1.0); HEMATOCRIT 24.9 % (36.0-47.0); HEMOGLOBIN 7.4 g/dl (12.0-15.5); LYMPH # 0.9 10^3/uL (1.5-5.0); LYMPH % 14.5 % (24.0-44.0); MEAN CORPUSCULAR HEMOGLOBIN 24.9 pg (27.0-33.0); MEAN CORPUSCULAR HGB CONC 29.7 g/dl (32.0-36.5); MEAN CORPUSCULAR VOLUME 83.8 fl (80.0-96.0); MONO # 0.5 10^3/uL (0.0-0.8); MONO % 7.6 % (2.0-8.0); NEUTROPHILS # 4.9 10^3/uL (1.5-8.5); NEUTROPHILS % 77.4 % (36.0-66.0); PLATELET COUNT, AUTOMATED 319 10^3/uL (150-450); RED BLOOD COUNT 2.97 10^6/uL (4.00-5.40); WHITE BLOOD COUNT 6.4 10^3/uL (4.0-10.0)
[2021-01-18 07:37] LABS: CALCIUM LEVEL 8.3 MG/DL (8.8-10.2); CREATININE FOR GFR 1.4 MG/DL (0.55-1.30); MAGNESIUM LEVEL 2.2 MG/DL (1.8-2.4); POTASSIUM SERUM 3.6 MEQ/L (3.5-5.1); VANCOMYCIN RANDOM 14.7 UG/ML
[2021-01-18] MEDS: PANTOPRAZOLE 40MG TAB (PROTONIX) PO SCH (08:31)
[2021-01-18] MEDS: GABAPENTIN 300 MG CAP PO SCH ×3 (08:31→20:56)
[2021-01-18] MEDS: MELOXICAM (MOBIC) 7.5 MG TAB PO SCH ×2 (08:31→20:57)
[2021-01-18] MEDS: FUROSEMIDE 40 MG TAB PO SCH (08:31)
[2021-01-18] MEDS: MORPHINE 30 MG SA TAB PO SCH ×2 (08:38→20:57)
--- NOTE | 2021-01-18 09:02 | IPNPDOC ---
Subjective General Date Seen: Jan 18, 2021 Subject Chief Complaint/History The patient is a 75-year-old female admitted with a reason for visit of Chronic Ulcer Of Leg. Patient is status post irrigation and debridement left medial, left lateral knee wounds as well as left hip wound postop day 1. Patient is feeling well today. She has no pain. She is eating breakfast in bed. Wound VAC is placed on left medial and left hip wounds and is working properly. Left lateral knee wound with packing. No active bleeding. Current Medications Current Medications Current Medications Medications (Trade) Dose Ordered Sig/Joanne Route PRN Reason Start Time Stop Time Status Last Admin Dose Admin Acetaminophen (Tylenol Tab) 500 mg BID PRN PO PAIN 01/14/21 18:30 01/15/21 21:47 Clindamycin Phosphate 600 mg/ IV Miscellaneous Supplies 50 ml @ 100 mls/hr Q6H IV 01/14/21 19:00 01/14/21 18:41 DC Duloxetine HCl (Cymbalta) 60 mg QPM PO 01/14/21 21:00 01/17/21 20:20 Fentanyl Citrate (Sublimaze) 25 mcg Q5MP PRN IV PAIN LEVEL 5-10 01/17/21 12:10 01/17/21 13:10 DC Furosemide (Lasix) 40 mg DAILY PO 01/15/21 09:00 01/18/21 08:31 Gabapentin (Neurontin) 300 mg TID PO 01/14/21 21:00 01/18/21 08:31 Home Med (Med Rec Complete!) ASDIRECTED XX 01/14/21 16:10 01/14/21 16:13 DC Hydromorphone HCl (Dilaudid) 0.2 mg Q5MP PRN IV PAIN LEVEL 4-7 01/17/21 12:10 01/17/21 13:10 DC Lactated Ringer's 1,000 ml @ 100 mls/hr Q10H IV 01/17/21 12:10 01/17/21 13:10 DC Levothyroxine Sodium (Synthroid) 100 mcg DAILY@0600 PO 01/15/21 06:00 01/18/21 06:22 Meloxicam (Mobic) 7.5 mg BID PO 01/14/21 21:00 01/18/21 08:31 Morphine Sulfate (Ms Contin) 30 mg BID PO 01/14/21 21:00 01/18/21 08:38 Non-Formulary Medication ( See Comment Field Below ) VANCO INTERMIT. DOSING ASDIRECTED XX 01/16/21 20:35 Ondansetron HCl (ZOFRAN INJection) 4 mg Q4HP PRN IV NAUSEA OR VOMITING 01/17/21 12:10 01/17/21 13:10 DC Oxycodone HCl (Roxicodone, Oxyir) 5 mg ASDIRECTED PRN PO PAIN LEVEL 1-4 01/17/21 12:10 01/17/21 13:10 DC Pantoprazole Sodium (Protonix) 40 mg DAILY PO 01/15/21 09:00 01/18/21 08:31 Piperacillin Sod/ Tazobactam Sod 3.375 gm/Dextrose 50 ml @ 50 mls/hr Q6H IV 01/15/21 02:00 01/18/21 08:31 Vancomycin HCl 1000 mg/IV Miscellaneous Supplies 1 each/ Sodium Chloride 270 ml @ 270 mls/hr Q24H IV 01/14/21 21:00 01/16/21 20:30 DC 01/15/21 21:44 Vancomycin HCl 1230 mg/IV Miscellaneous Supplies 24.6 ml @ 24.6 mls/hr Q12H IV 01/14/21 18:30 01/14/21 19:21 DC Allergies Coded Allergies: pregabalin (Verified Adverse Reaction, Unknown, "made me feel spaced out", 09/26/20) Objective Physical Examination Examination GENERAL APPEARANCE:Patient seen, laying in bed, awake, alert, and oriented. Comfortable, in no acute distress. SKIN: Warm and moist. Left leg wounds all with dressings in place. No active bleeding. No swelling. No pain. LUNGS: Clear to auscultation bilaterally. No wheezing appreciated. HEART: No chest wall abnormalities. Regular rate and rhythm with no murmurs appreciated. EXTREMITIES: No edema identified. No calf tenderness. Vital Signs Vital Signs Date Time Temp Pulse Resp B/P (MAP) Pulse Ox O2 Delivery O2 Flow Rate FiO2 01/18/21 08:38 18 01/18/21 06:00 97.4 86 118/61 (80) 96 01/17/21 20:23 Room Air 01/17/21 15:15 2.0 I&Os I&O- Last 24 Hours up to 6 AM 01/18/21 06:00 Intake Total 1120 ml Output Total 200 ml Balance 920 ml Laboratory Data Labs 24H Laboratory Tests 2 01/18/21 06:38: Immature Granulocyte % (Auto) 0.3, Neutrophils (%) (Auto) 77.4H, Lymphocytes (%) (Auto) 14.5L, Monocytes (%) (Auto) 7.6, Eosinophils (%) (Auto) 0.0, Basophils (%) (Auto) 0.2, Neutrophils # (Auto) 4.9, Lymphocytes # (Auto) 0.9L, Monocytes # (Auto) 0.5, Eosinophils # (Auto) 0.0, Basophils # (Auto) 0.0, Nucleated Red Blood Cells % (auto) 0.0, Anion Gap 8, Glomerular Filtration Rate 39.0, Calcium Level 8.3L, Magnesium Level 2.2, Random Vancomycin Level 14.7 CBC/BMP Laboratory Tests 01/18/21 06:38 Microbiology Microbiology 01/17/21 Gram Stain - Final, Resulted 01/17/21 Wound Culture, Resulted Pending 01/17/21 Gram Stain - Final, Resulted 01/17/21 Wound Culture, Resulted Pending 01/17/21 Gram Stain - Final, Resulted 01/17/21 Wound Culture, Resulted Pending Impression Chronic wounds left medial, lateral knee and left hip. We plan to change packing on the left lateral knee, this wound is not communicating with hardware. Left medial knee and left hip wounds are to continue with wound VAC. Both wounds communicate with hardware. Plan for blood transfusion today. Continue with antibiotics today. Findings discussed with patient and her sister at length. We will continue monitoring. Patient is not able to maintain wound VAC at home, therefore we would like to keep her in-house until Thursday when we can change the dressing. Plan / VTE VTE Prophylaxis Ordered?: Yes NAVYA RIVERA DO Jan 18, 2021 09:02
[2021-01-18] MEDS ORDERED: VANCOMYCIN HCL 500 MG in D5W MINI-BAG PLUS 100 ML IV ONE (10:00)
--- NOTE | 2021-01-18 10:40 | IPNPDOC ---
Text Note Date of Service The patient was seen on 01/18/21. NOTE SUBJECTIVE: Patient was seen and examined at bedside. She states she is feeling well since the surgery. She is hoping to go home as soon as possible. She states her pain is well controlled. No new concerns today. OBJECTIVE: VITAL SIGNS: See below GENERAL: Alert, comfortable, in no acute distress HEENT: Normocephalic, atraumatic, sclera anicteric, moist mucous membranes CARDIOVASCULAR: Regular rate and rhythm, normal S1 and S2. No murmurs, rubs, or gallops RESPIRATORY: Clear to auscultation bilaterally with equal air entry bilaterally. No wheezing, rhonchi, or rales. ABDOMEN: Soft, nontender, nondistended, bowel sounds present, epigastric hernia noted which is easily reducible EXTREMITIES: Bilateral legs are short compared to her body size. No edema in the right leg. 1+ pitting edema in the left leg. Venous stasis skin changes over the left leg. Wounds on medial knee and lateral hip of the left leg have wound vac in place. Wound on later knee is covered in a clean dressing. No surrounding erythema or induration. SKIN: Multiple seborrheic keratoses of various size on her back. NEUROLOGIC: Alert and oriented x3 to person, place and time. No focal deficits appreciated. PSYCHIATRIC: Mood and affect appropriate ASSESSMENT/PLAN: 75-year-old female with recurrent left hip infection presents to the hospital for surgical debridement of left knee wound, admitted by hospitalist team for perioperative management. # Left medial knee, lateral knee, and hip wounds - WBC normal. CRP elevated - CT knee shows diffuse thickening with cellulitis, no abscess - IV abx with vancomycin and zosyn day #5 - s/p surgical debridement of all three wounds Dr. Valladares POD#1, wound vac placed on medial knee and hip # Chronic anemia - hx anemia of chronic disease on prior admission - H/H has dropped post operatively - s/p 1 units PRBC. Will transfuse second unit today # Hypothyroidism - continue home levothyroxine # Chronic pain - continue home cymbalta, meloxicam, morphine sulfate, and gabapentin # Leg edema - continue home lasix # GERD - continue home protonix DVT Prophylaxis: Teds and SCDs DISPOSITION: plan for d/c home on thursday after wound vac removal per Dr. Valladares Attending Attestation: Patient independently seen and examined. I have discussed in detail with the resident / student the findings and plan of treatment as documented by the resid ent / student. I agree with their findings and treatment plan and have edited their documentation. I will continue to follow the patient during this hospital stay. VS,Fishbone, I+O VS, Fishbone, I+O Laboratory Tests 01/18/21 06:38 Vital Signs Date Time Temp Pulse Resp B/P (MAP) Pulse Ox O2 Delivery O2 Flow Rate FiO2 01/18/21 08:38 18 01/18/21 06:00 97.4 86 118/61 (80) 96 01/17/21 20:23 Room Air 01/17/21 15:15 2.0 I&O- Last 24 Hours up to 6 AM 01/18/21 06:00 Intake Total 1120 ml Output Total 200 ml Balance 920 ml FRANCISCO GRANADO D.O. Jan 18, 2021 10:40 TESHA MCGUIRE MD Jan 20, 2021 11:43
[2021-01-18] MEDS: DULoxetine 30 MG CAP (CYMBALTA) PO SCH (20:57)
[2021-01-19] MEDS: PIPERACILLIN/TAZOBACTAM SOD 3.375 GM in D5W MINI-BAG PLUS 50 ML IV SCH ×4 (03:17→20:28)
[2021-01-19 06:00] VITALS: BP 110/59
[2021-01-19] MEDS: LEVOTHYROXINE 100MCG TABLET (0.1MG) PO SCH (06:08)
[2021-01-19 07:18] LABS: BASO % 0.1 % (0.0-1.0); HEMATOCRIT 29.6 % (36.0-47.0); HEMOGLOBIN 9.1 g/dl (12.0-15.5); LYMPH # 2.1 10^3/uL (1.5-5.0); LYMPH % 28.6 % (24.0-44.0); MEAN CORPUSCULAR HEMOGLOBIN 26.4 pg (27.0-33.0); MEAN CORPUSCULAR HGB CONC 30.7 g/dl (32.0-36.5); MEAN CORPUSCULAR VOLUME 85.8 fl (80.0-96.0); MONO # 0.7 10^3/uL (0.0-0.8); MONO % 9.2 % (2.0-8.0); NEUTROPHILS # 4.5 10^3/uL (1.5-8.5); NEUTROPHILS % 61.7 % (36.0-66.0); PLATELET COUNT, AUTOMATED 261 10^3/uL (150-450); RED BLOOD COUNT 3.45 10^6/uL (4.00-5.40); WHITE BLOOD COUNT 7.3 10^3/uL (4.0-10.0)
[2021-01-19 07:41] LABS: CREATININE FOR GFR 1.54 MG/DL (0.55-1.30); VANCOMYCIN RANDOM 14.5 UG/ML
[2021-01-19] MEDS: PANTOPRAZOLE 40MG TAB (PROTONIX) PO SCH (08:32)
[2021-01-19] MEDS: FUROSEMIDE 40 MG TAB PO SCH (08:32)
[2021-01-19] MEDS: GABAPENTIN 300 MG CAP PO SCH ×3 (08:32→20:27)
[2021-01-19] MEDS: MELOXICAM (MOBIC) 7.5 MG TAB PO SCH ×2 (08:36→20:27)
[2021-01-19] MEDS: MORPHINE 30 MG SA TAB PO SCH ×2 (08:37→20:28)
[2021-01-19] MEDS: VANCOMYCIN HCL 500 MG in D5W MINI-BAG PLUS 100 ML IV SCH (09:47)
--- NOTE | 2021-01-19 10:13 | IPNPDOC ---
Text Note Date of Service The patient was seen on 01/19/21. NOTE SUBJECTIVE: Patient was seen and examined at bedside. She denies any new concerns. She states she is anxiously ready to return home, but understand she needs to wait until Thursday for the wound vac to be removed first. OBJECTIVE: VITAL SIGNS: See below GENERAL: Alert, comfortable, in no acute distress HEENT: Normocephalic, atraumatic, sclera anicteric, moist mucous membranes CARDIOVASCULAR: Regular rate and rhythm, normal S1 and S2. No murmurs, rubs, or gallops RESPIRATORY: Clear to auscultation bilaterally with equal air entry bilaterally. No wheezing, rhonchi, or rales. ABDOMEN: Soft, nontender, nondistended, bowel sounds present, epigastric hernia noted which is easily reducible EXTREMITIES: Bilateral legs are short compared to her body size. No edema in the right leg. 1+ pitting edema in the left leg. Venous stasis skin changes over the left leg. Wounds on medial knee and lateral hip of the left leg have wound vac in place. Wound on later knee is covered in a clean dressing. No surrounding erythema or induration. SKIN: Multiple seborrheic keratoses of various size on her back. NEUROLOGIC: Alert and oriented x3 to person, place and time. No focal deficits appreciated. PSYCHIATRIC: Mood and affect appropriate ASSESSMENT/PLAN: 75-year-old female with recurrent left hip infection presents to the hospital for surgical debridement of left knee wound, admitted by hospitalist team for perioperative management. # Left medial knee, lateral knee, and hip wounds - WBC normal. CRP elevated on admission - CT knee shows diffuse thickening with cellulitis, no abscess - IV abx with vancomycin and zosyn day #6 - s/p surgical debridement of all three wounds Dr. Valladares POD#2, wound vac placed on medial knee and hip # Chronic anemia - hx anemia of chronic disease on prior admission - H/H dropped post operatively, now improved - s/p 2 units PRBC during admission # Hypothyroidism - continue home levothyroxine # Chronic pain - continue home cymbalta, meloxicam, morphine sulfate, and gabapentin # Leg edema - continue home lasix # GERD - continue home protonix DVT Prophylaxis: Teds and SCDs DISPOSITION: plan for d/c home on thursday after wound vac removal per Dr. Valladares Attending Attestation: Patient independently seen and examined. I have discussed in detail with the resident / student the findings and plan of treatment as documented by the resident / student. I agree with their findings and treatment plan and have edited their documentation. I will continue to follow the patient during this hospital stay. VS,Fishbone, I+O VS, Fishbone, I+O Laboratory Tests 01/19/21 06:56 Vital Signs Date Time Temp Pulse Resp B/P (MAP) Pulse Ox O2 Delivery O2 Flow Rate FiO2 01/19/21 08:37 18 01/19/21 06:00 97.7 75 110/59 (76) 96 Room Air 01/17/21 15:15 2.0 I&O- Last 24 Hours up to 6 AM 01/19/21 06:00 Intake Total 1180 ml Output Total 0 ml Balance 1180 ml FRANCISCO GRANADO D.O. Jan 19, 2021 10:13 TESHA MCGUIRE MD Jan 20, 2021 11:56
[2021-01-19] MEDS: POTASSIUM CHLORIDE 10 MEQ SR TABLET PO SCH ×2 (10:46→14:30)
[2021-01-19 14:00] VITALS: BP 123/68
[2021-01-19] MEDS: DULoxetine 30 MG CAP (CYMBALTA) PO SCH (20:27)
[2021-01-19 22:00] VITALS: BP 122/67
[2021-01-20] MEDS: PIPERACILLIN/TAZOBACTAM SOD 3.375 GM in D5W MINI-BAG PLUS 50 ML IV SCH ×4 (02:49→21:30)
[2021-01-20] MEDS: LEVOTHYROXINE 100MCG TABLET (0.1MG) PO SCH (05:59)
[2021-01-20 06:00] VITALS: BP 120/66
[2021-01-20 06:27] LABS: BASO % 0.1 % (0.0-1.0); HEMATOCRIT 29.9 % (36.0-47.0); HEMOGLOBIN 9.2 g/dl (12.0-15.5); LYMPH # 1.7 10^3/uL (1.5-5.0); MEAN CORPUSCULAR HEMOGLOBIN 26.4 pg (27.0-33.0); MEAN CORPUSCULAR HGB CONC 30.8 g/dl (32.0-36.5); MEAN CORPUSCULAR VOLUME 85.7 fl (80.0-96.0); MONO # 0.7 10^3/uL (0.0-0.8); MONO % 9.4 % (2.0-8.0); NEUTROPHILS # 5.2 10^3/uL (1.5-8.5); PLATELET COUNT, AUTOMATED 278 10^3/uL (150-450); RED BLOOD COUNT 3.49 10^6/uL (4.00-5.40); WHITE BLOOD COUNT 7.6 10^3/uL (4.0-10.0)
[2021-01-20 06:43] LABS: CALCIUM LEVEL 8.4 MG/DL (8.8-10.2); CREATININE FOR GFR 1.26 MG/DL (0.55-1.30); GLOMERULAR FILTRATION RATE 44.1 (>39); MAGNESIUM LEVEL 1.7 MG/DL (1.8-2.4); POTASSIUM SERUM 3.3 MEQ/L (3.5-5.1)
[2021-01-20] MEDS: GABAPENTIN 300 MG CAP PO SCH ×3 (08:48→21:30)
[2021-01-20] MEDS: MORPHINE 30 MG SA TAB PO SCH ×2 (08:48→21:31)
[2021-01-20] MEDS: FUROSEMIDE 40 MG TAB PO SCH (08:48)
[2021-01-20] MEDS: PANTOPRAZOLE 40MG TAB (PROTONIX) PO SCH (08:48)
[2021-01-20] MEDS: MELOXICAM (MOBIC) 7.5 MG TAB PO SCH ×2 (08:48→21:32)
[2021-01-20] MEDS ORDERED: POTASSIUM CHLORIDE 10 MEQ SR TABLET PO ONE (09:00)
[2021-01-20] MEDS ORDERED: MAG SULF 1GM/100ML (MAG RUN) 1 GM in IV 1 EA IV ONE (09:00)
[2021-01-20] MEDS: VANCOMYCIN HCL 500 MG in D5W MINI-BAG PLUS 100 ML IV SCH (10:57)
--- NOTE | 2021-01-20 11:03 | IPNPDOC ---
Text Note Date of Service The patient was seen on 01/20/21. NOTE SUBJECTIVE: Patient was seen and examined at bedside. No acute overnight events reported. Patient voices no new medical complaints this morning. She is anxious to return home. OBJECTIVE: VITAL SIGNS: See below GENERAL: Alert, comfortable, in no acute distress HEENT: Normocephalic, atraumatic, sclera anicteric, moist mucous membranes CARDIOVASCULAR: Regular rate and rhythm, normal S1 and S2. No murmurs, rubs, or gallops RESPIRATORY: Clear to auscultation bilaterally with equal air entry bilaterally. No wheezing, rhonchi, or rales. ABDOMEN: Soft, nontender, nondistended, bowel sounds present, epigastric hernia noted which is easily reducible EXTREMITIES: Bilateral legs are short compared to her body size. No edema in the right leg. 1+ pitting edema in the left leg. Venous stasis skin changes over the left leg. Wounds on medial knee and lateral hip of the left leg have wound vac in place. Wound on later knee is covered in a clean dressing. No surrounding erythema or induration. ASSESSMENT/PLAN: 75-year-old female with recurrent left hip infection presents to the hospital for surgical debridement of left knee wound, admitted by hospitalist team for perioperative management. # Left medial knee, lateral knee, and hip wounds - WBC normal. CRP elevated on admission - CT knee shows diffuse thickening with cellulitis, no abscess - IV abx with vancomycin and zosyn day #7 - anticipating discharge abx tomorrow - s/p surgical debridement of all three wounds Dr. Valladares POD#3, wound vac placed on medial knee and hip # Chronic anemia - hx anemia of chronic disease on prior admission - H/H dropped post operatively, now improved - s/p 2 units PRBC during admission # Hypothyroidism - continue home levothyroxine # Chronic pain - continue home cymbalta, meloxicam, morphine sulfate, and gabapentin # Leg edema - continue home lasix # GERD - continue home protonix DVT Prophylaxis: Teds and SCDs DISPOSITION: plan for d/c home on thursday after wound vac removal per Dr. Valladares VS,Kajal, I+O VS, Kangbone, I+O Laboratory Tests 01/20/21 05:53 Vital Signs Date Time Temp Pulse Resp B/P (MAP) Pulse Ox O2 Delivery O2 Flow Rate FiO2 01/20/21 08:48 16 01/20/21 06:00 98.1 78 120/66 (84) 97 01/19/21 14:00 Room Air 01/17/21 15:15 2.0 I&O- Last 24 Hours up to 6 AM 01/20/21 06:00 Intake Total 1480 ml Output Total 600 ml Balance 880 ml TESHA MCGUIRE MD Jan 20, 2021 11:03
[2021-01-20 14:00] VITALS: BP 114/56
[2021-01-20] MEDS: DULoxetine 30 MG CAP (CYMBALTA) PO SCH (21:30)
[2021-01-20 22:00] VITALS: BP 102/66
[2021-01-21] MEDS: PIPERACILLIN/TAZOBACTAM SOD 3.375 GM in D5W MINI-BAG PLUS 50 ML IV SCH ×2 (02:24→09:05)
[2021-01-21] MEDS: LEVOTHYROXINE 100MCG TABLET (0.1MG) PO SCH (05:38)
[2021-01-21 06:00] VITALS: BP 123/61
[2021-01-21 06:36] LABS: HEMATOCRIT 31.1 % (36.0-47.0); HEMOGLOBIN 9.6 g/dl (12.0-15.5); LYMPH # 1.7 10^3/uL (1.5-5.0); LYMPH % 21.8 % (24.0-44.0); MEAN CORPUSCULAR HEMOGLOBIN 26.8 pg (27.0-33.0); MEAN CORPUSCULAR HGB CONC 30.9 g/dl (32.0-36.5); MEAN CORPUSCULAR VOLUME 86.9 fl (80.0-96.0); MONO # 0.7 10^3/uL (0.0-0.8); MONO % 8.9 % (2.0-8.0); NEUTROPHILS # 5.5 10^3/uL (1.5-8.5); NEUTROPHILS % 68.7 % (36.0-66.0); PLATELET COUNT, AUTOMATED 279 10^3/uL (150-450); RED BLOOD COUNT 3.58 10^6/uL (4.00-5.40)
[2021-01-21 07:00] LABS: CALCIUM LEVEL 8.8 MG/DL (8.8-10.2); CREATININE FOR GFR 1.3 MG/DL (0.55-1.30); GLOMERULAR FILTRATION RATE 42.5 (>39); MAGNESIUM LEVEL 2.3 MG/DL (1.8-2.4); POTASSIUM SERUM 3.7 MEQ/L (3.5-5.1)
[2021-01-21] MEDS: MORPHINE 30 MG SA TAB PO SCH (09:04)
[2021-01-21] MEDS: GABAPENTIN 300 MG CAP PO SCH (09:04)
[2021-01-21] MEDS: MELOXICAM (MOBIC) 7.5 MG TAB PO SCH (09:04)
[2021-01-21] MEDS: FUROSEMIDE 40 MG TAB PO SCH (09:05)
[2021-01-21] MEDS: PANTOPRAZOLE 40MG TAB (PROTONIX) PO SCH (09:05)
--- NOTE | 2021-01-21 09:37 | IPNPDOC ---
Subjective General Date Seen: Jan 21, 2021 Subject Chief Complaint/History The patient is a 75-year-old female admitted with a reason for visit of Chronic Ulcer Of Leg. Patient s/p I/D left hip, left medial and lateral knee debridement. Wound vac in place. Pain controlled. Current Medications Current Medications Current Medications Medications (Trade) Dose Ordered Sig/Joanne Route PRN Reason Start Time Stop Time Status Last Admin Dose Admin Acetaminophen (Tylenol Tab) 500 mg BID PRN PO PAIN 01/14/21 18:30 01/15/21 21:47 Clindamycin Phosphate 600 mg/ IV Miscellaneous Supplies 50 ml @ 100 mls/hr Q6H IV 01/14/21 19:00 01/14/21 18:41 DC Duloxetine HCl (Cymbalta) 60 mg QPM PO 01/14/21 21:00 01/20/21 21:30 Fentanyl Citrate (Sublimaze) 25 mcg Q5MP PRN IV PAIN LEVEL 5-10 01/17/21 12:10 01/17/21 13:10 DC Furosemide (Lasix) 40 mg DAILY PO 01/15/21 09:00 01/21/21 09:05 Gabapentin (Neurontin) 300 mg TID PO 01/14/21 21:00 01/21/21 09:04 Home Med (Med Rec Complete!) ASDIRECTED XX 01/14/21 16:10 01/14/21 16:13 DC Hydromorphone HCl (Dilaudid) 0.2 mg Q5MP PRN IV PAIN LEVEL 4-7 01/17/21 12:10 01/17/21 13:10 DC Lactated Ringer's 1,000 ml @ 100 mls/hr Q10H IV 01/17/21 12:10 01/17/21 13:10 DC Levothyroxine Sodium (Synthroid) 100 mcg DAILY@0600 PO 01/15/21 06:00 01/21/21 05:38 Meloxicam (Mobic) 7.5 mg BID PO 01/14/21 21:00 01/21/21 09:04 Morphine Sulfate (Ms Contin) 30 mg BID PO 01/14/21 21:00 01/21/21 09:04 Non-Formulary Medication ( See Comment Field Below ) VANCO INTERMIT. DOSING ASDIRECTED XX 01/16/21 20:35 01/19/21 07:42 DC Ondansetron HCl (ZOFRAN INJection) 4 mg Q4HP PRN IV NAUSEA OR VOMITING 01/17/21 12:10 01/17/21 13:10 DC Oxycodone HCl (Roxicodone, Oxyir) 5 mg ASDIRECTED PRN PO PAIN LEVEL 1-4 01/17/21 12:10 01/17/21 13:10 DC Pantoprazole Sodium (Protonix) 40 mg DAILY PO 01/15/21 09:00 01/21/21 09:05 Piperacillin Sod/ Tazobactam Sod 3.375 gm/Dextrose 50 ml @ 50 mls/hr Q6H IV 01/15/21 02:00 01/21/21 09:05 Potassium Chloride (Micro-K Extencaps) 40 meq Q4H PO 01/19/21 10:30 01/19/21 14:31 DC 01/19/21 14:30 Vancomycin HCl 500 mg/Dextrose 110 ml @ 110 mls/hr Q24H IV 01/19/21 09:00 01/20/21 10:57 Vancomycin HCl 1000 mg/IV Miscellaneous Supplies 1 each/ Sodium Chloride 270 ml @ 270 mls/hr Q24H IV 01/14/21 21:00 01/16/21 20:30 DC 01/15/21 21:44 Vancomycin HCl 1230 mg/IV Miscellaneous Supplies 24.6 ml @ 24.6 mls/hr Q12H IV 01/14/21 18:30 01/14/21 19:21 DC Allergies Coded Allergies: pregabalin (Verified Adverse Reaction, Unknown, "made me feel spaced out", 09/26/20) Objective Physical Examination Examination GENERAL APPEARANCE:Patient seen, laying in bed, awake, alert, and oriented. Comfortable, in no acute distress. SKIN: Warm and moist. Left hip open wound 1.5x1.5 x7cm, Left lateral knee [id number], Left medial knee [id number] all clean tissue with serosanguinous moderate drainage. No odor. LUNGS: Clear to auscultation bilaterally. No wheezing appreciated. HEART: No chest wall abnormalities. Regular rate and rhythm with no murmurs appreciated. ABDOMEN: Abdomen is soft, non-tender, non-distended. EXTREMITIES: No edema identified. No calf tenderness. Vital Signs Vital Signs Date Time Temp Pulse Resp B/P (MAP) Pulse Ox O2 Delivery O2 Flow Rate FiO2 01/21/21 09:04 16 01/21/21 06:00 97.5 70 123/61 (81) 94 Room Air 01/17/21 15:15 2.0 I&Os I&O- Last 24 Hours up to 6 AM 01/21/21 06:00 Intake Total 925 ml Output Total 1300 ml Balance -375 ml Laboratory Data Labs 24H Laboratory Tests 2 01/21/21 06:17: Immature Granulocyte % (Auto) 0.6, Neutrophils (%) (Auto) 68.7H, Lymphocytes (%) (Auto) 21.8L, Monocytes (%) (Auto) 8.9H, Eosinophils (%) (Auto) 0.0, Basophils (%) (Auto) 0.0, Neutrophils # (Auto) 5.5, Lymphocytes # (Auto) 1.7, Monocytes # (Auto) 0.7, Eosinophils # (Auto) 0.0, Basophils # (Auto) 0.0, Nucleated Red Blood Cells % (auto) 0.0, Anion Gap 5L, Glomerular Filtration Rate 42.5, Calcium Level 8.8, Magnesium Level 2.3 01/21/21 08:20: Vancomycin Level Trough 18.9 CBC/BMP Laboratory Tests 01/21/21 06:17 Microbiology Microbiology 01/17/21 Gram Stain - Final, Complete 01/17/21 Wound Culture - Final, Complete Enterococcus Faecalis 01/17/21 Gram Stain - Final, Complete 01/17/21 Wound Culture - Final, Complete 01/17/21 Gram Stain - Final, Complete 01/17/21 Wound Culture - Final, Complete Pseudomonas Aeruginosa Impression Chronic wounds Left hip, left medial and lateral knee. Stable for discharge Wound vac removed. Patient is unable to tolerate and manage wound vac at home. Hydrofera rope half length placed all wounds, covered with Hydrofera transfer and foam dressings. Change at home daily and prn. F/up wound care clinic after discharge. Rx Levaquin for Pseudomonas coverage. Plan / VTE VTE Prophylaxis Ordered?: Yes NAVYA RIVERA DO Jan 21, 2021 09:37
[2021-01-21] MEDS ORDERED: LEVO750T13 PO (10:10)
[2021-01-21] MEDS: VANCOMYCIN HCL 500 MG in D5W MINI-BAG PLUS 100 ML IV SCH (10:19)
--- NOTE | 2021-01-21 14:36 | DS.PDOC ---
Discharge Summary General Date of Admission Jan 14, 2021 at 18:53 Date of Discharge 01/21/21 Specialist/Consultants Involve dr schwab - plastics Discharge Summary PROCEDURES PERFORMED DURING STAY: Irrigation and debridement of Left hip, Left medial and lateral knee chronic wounds DISCHARGE DIAGNOSES: Chronic wound left medial, left lateral knee and left hip SECONDARY DIAGNOSES 1. Congenital abnormalities 2. Hypertension 3. Hypothyroidism 4. Chronic pain 5. Obesity COMPLICATIONS/CHIEF COMPLAINT: Chronic Ulcer Of Leg. HISTORY OF PRESENT ILLNESS: 75 year old female who presents today after being seen in the outpatient setting by Dr. Castañeda for wounds on her left hip and left knee. She has been following with Dr. Castañeda for about 8 months now. She did require surgical debridement previously for a wound on her left him in September 2020. She denies any fevers or chills over the past few months. She has noted some drainage from the wound on her medial left knee. She states this is the one that Dr. Castañeda sent her here for treatment of. HOSPITAL COURSE: # Left medial knee, lateral knee, and hip wounds - WBC normal. CRP elevated on admission - CT knee showed diffuse thickening with cellulitis, no abscess - started on Zosyn and vanco, de-escalated to levaquin - pseudo in wound cultures - s/p surgical debridement of all three wounds - wound vac placed on medial knee and hip # Chronic anemia - hx anemia of chronic disease on prior admission - H/H dropped post operatively, now improved - s/p 2 units PRBC during admission # Hypothyroidism - continue home levothyroxine # Chronic pain - continue home cymbalta, meloxicam, morphine sulfate, and gabapentin DISCHARGE MEDICATIONS: Please see below. ALLERGIES: Please see below. PHYSICAL EXAMINATION ON DISCHARGE: VITAL SIGNS: Please see below. GENERAL: Alert, comfortable, in no acute distress HEENT: Normocephalic, atraumatic, sclera anicteric, moist mucous membranes CARDIOVASCULAR: Regular rate and rhythm, normal S1 and S2. No murmurs, rubs, or gallops RESPIRATORY: Clear to auscultation bilaterally with equal air entry bilaterally. No wheezing, rhonchi, or rales. ABDOMEN: Soft, nontender, nondistended, bowel sounds present, epigastric hernia noted which is easily reducible EXTREMITIES: Bilateral legs are short compared to her body size. No edema in the right leg. 1+ pitting edema in the left leg. Venous stasis skin changes over the left leg. Wounds on medial knee and lateral hip of the left leg have wound vac in place. Wound on later knee is covered in a clean dressing. No surrounding erythema or induration. LABORATORY DATA: Please see below. ACTIVITY: [As tolerated]. DISPOSITION: 01 Home, Self-Care. DISCHARGE INSTRUCTIONS: 1. Follow up PCP in 3-5 days 2[address] Follow up Dr. Castañeda for wound care in 1-2 days 3. Medications as directed DISCHARGE CONDITION: [Stable]. TIME SPENT ON DISCHARGE: 35 minutes. Vital Signs/I&Os Vital Signs Date Time Temp Pulse Resp B/P (MAP) Pulse Ox O2 Delivery O2 Flow Rate FiO2 01/21/21 09:04 16 01/21/21 06:00 97.5 70 123/61 (81) 94 Room Air 01/17/21 15:15 2.0 I&O- Last 24 Hours up to 6 AM 01/21/21 06:00 Intake Total 925 ml Output Total 1300 ml Balance -375 ml Laboratory Data Labs 24H Laboratory Tests 2 01/21/21 06:17: Immature Granulocyte % (Auto) 0.6, Neutrophils (%) (Auto) 68.7H, Lymphocytes (%) (Auto) 21.8L, Monocytes (%) (Auto) 8.9H, Eosinophils (%) (Auto) 0.0, Basophils (%) (Auto) 0.0, Neutrophils # (Auto) 5.5, Lymphocytes # (Auto) 1.7, Monocytes # (Auto) 0.7, Eosinophils # (Auto) 0.0, Basophils # (Auto) 0.0, Nucleated Red B lood Cells % (auto) 0.0, Anion Gap 5L, Glomerular Filtration Rate 42.5, Calcium Level 8.8, Magnesium Level 2.3 01/21/21 08:20: Vancomycin Level Trough 18.9 CBC/BMP Laboratory Tests 01/21/21 06:17 Microbiology Microbiology 01/17/21 Gram Stain - Final, Complete 01/17/21 Wound Culture - Final, Complete Enterococcus Faecalis 01/17/21 Gram Stain - Final, Complete 01/17/21 Wound Culture - Final, Complete 01/17/21 Gram Stain - Final, Complete 01/17/21 Wound Culture - Final, Complete Pseudomonas Aeruginosa Discharge Medications Scheduled Diclofenac Sodium (Diclofenac Sodium) 1% 100GM Gel..gram., 2 GRAMS TOP BID, (Reported) APPLIES TO SHOULDERS/LOWER BACK Duloxetine Hcl (Duloxetine HCl) 60 Mg Capsule.dr, 60 MG PO QPM, (Reported) Furosemide (Furosemide) 40 Mg Tablet, 40 MG PO DAILY, (Reported) Gabapentin (Gabapentin) 300 Mg Capsule, 300 MG PO TID, (Reported) Levofloxacin (Levofloxacin) 750 Mg Tablet, 750 MG PO DAILY Levothyroxine Sodium (Levothyroxine Sodium) 100 Mcg Tablet, 100 MCG PO DAILY, (Reported) Meloxicam (Meloxicam) 7.5 Mg Tablet, 7.5 MG PO BID, (Reported) Morphine Sulfate (Morphine Sulfate ER) 30 Mg Tablet.er, 30 MG PO BID, (Reported) Pantoprazole Sodium (Pantoprazole Sodium) 40 Mg Tablet.dr, 40 MG PO DAILY, (Reported) Scheduled PRN Acetaminophen (Acetaminophen) 500 Mg Tablet, 500 MG PO BID PRN for PAIN, (Repor opal) Allergies Coded Allergies: pregabalin (Verified Adverse Reaction, Unknown, "made me feel spaced out", 09/26/20) TESHA MCGUIRE MD Jan 21, 2021 14:36
== END 2021-01-21 14:17 | disposition home health service (06) | DRG 580 ==
LOC: M ED 14:01 → M ED INP 18:53 → ENRESERV 19:06 → M MSPAV 21:21
PROVIDERS: ADMIT Internal Medicine; ATTEND Internal Medicine
PROC: 30233N1 Transfusion of Nonautologous Red Blood Cells into Peripheral Vein, Percutaneous Approach (ICD-10-PCS; 2021-01-16)
PROC: 0KBG0ZZ Excision of Left Trunk Muscle, Open Approach (ICD-10-PCS; 2021-01-17)
PROC: 0KBT0ZZ Excision of Left Lower Leg Muscle, Open Approach (ICD-10-PCS; principal; 2021-01-17 10:45)
DX: L97.525 Non-pressure chronic ulcer of other part of left foot with muscle involvement without evidence of necrosis (principal); Z68.42 Body mass index [BMI] 45.0-49.9, adult; L03.116 Cellulitis of left lower limb; L08.9 Local infection of the skin and subcutaneous tissue, unspecified; I10 Essential (primary) hypertension; E66.9 Obesity, unspecified; D63.8 Anemia in other chronic diseases classified elsewhere; E03.9 Hypothyroidism, unspecified; G89.29 Other chronic pain; Z79.899 Other long term (current) drug therapy; Z88.8 Allergy status to other drugs, medicaments and biological substances; K21.9 Gastro-esophageal reflux disease without esophagitis

== ENCOUNTER → 2021-06-17 | Outpatient (REF) | payer OTHER ==
[~2021-06-17] MED LIST changes: -CLIN150C15 PO; +CLIN150C17 PO; +LEVO750T13 PO; -MONT10TA10 PO; +MONT10TA97 PO
[2021-06-17 17:54] LABS: HEMATOCRIT 34.8 % (36.0-47.0); HEMOGLOBIN 10.3 g/dl (12.0-15.5); MEAN CORPUSCULAR HEMOGLOBIN 24.1 pg (27.0-33.0); MEAN CORPUSCULAR HGB CONC 29.6 g/dl (32.0-36.5); MEAN CORPUSCULAR VOLUME 81.5 fl (80.0-96.0); PLATELET COUNT, AUTOMATED 360 10^3/uL (150-450); RED BLOOD COUNT 4.27 10^6/uL (4.00-5.40); WHITE BLOOD COUNT 6.1 10^3/uL (4.0-10.0)
== END ==
LOC: M LAB REF 16:50
PROVIDERS: ATTEND Surgery
DX: I87.312 Chronic venous hypertension (idiopathic) with ulcer of left lower extremity (principal)